=== PATIENT | female | born 1935 | race Caucasian/White ===

== ENCOUNTER → 2016-12-30 | Outpatient (CLI) | payer OTHER, MEDICARE ==
[~2016-12-30] MED LIST: ALBU18002; ALBU1AER9 INH; ATOR-22 PO; BUSP5TAB59 PO; CHOLDRO4 PO; CLOP1TAB5 PO; EFFSR150 PO; FEXO5TAB2 PO; FISHOIL PO; GABA-112 PO; GABA1CAP5 PO; HYDR25CA PO; LOSA1TAB PO; MISCCAP80 PO; MOME200A INH; MONT1TAB3 PO; MONT1TAB5 PO; OXYC1TAB3 PO; PRED20TA PO; PRLSR20 PO; SUMA25TA12 PO; SYN175 PO; SYN50 PO; VENL75CA PO; VERA180T PO; VITAMIN D3 PO; ZNTT/150 PO; [UNRECOGNIZED DRUG - OTHER] EXT
--- NOTE | 2016-12-30 15:21 | DIAGNOSTIC IMAGING REPORT ---
THORACIC SPINE 3 VIEWS CLINICAL HISTORY: Thoracic back pain. FINDINGS: AP, lateral, and swimmer's views of the thoracic spine are correlated with lateral chest radiograph dated 01/16/2016. The skeletal structures are osteopenic. There is no radiographic evidence of fracture or malalignment. Vertebral body height and alignment are maintained throughout the thoracic spine. Mild hyperkyphosis is observed. Anterior osteophytes are seen throughout. Mild multilevel degenerative disc space narrowing is noted and there is degenerative endplate sclerosis at several levels. The transverse processes and pedicles are grossly intact on frontal view. The imaged lung parenchyma appears clear. IMPRESSION: Osteopenia and spondylotic change as above. No acute bony abnormality is identified involving the thoracic spine. Electronically signed by: Shreyas Cai M.D. 12/30/2016 3:20 PM Dictated Date/Time: 12/30/2016 3:18 PM
--- NOTE | 2016-12-30 15:22 | DIAGNOSTIC IMAGING REPORT ---
CERVICAL SPINE 5 VIEWS HISTORY: Neck pain. COMPARISON: None. FINDINGS: The cervical spine is visualized from C1 through the superior endplate of T1. There is no fracture. There is 1 mm of anterolisthesis of C4 and C5. Mild disc space narrowing at C4-C5 and moderate to space narrowing at C5-C6 and C6-C7 with small endplate osteophytes. Mild to moderate facet osteoarthritis throughout the cervical spine with multilevel moderate right and mild left neural foraminal narrowing. Straightening of the cervical spine. Prevertebral soft tissues and the atlantodens interval are intact. IMPRESSION: 1. No fractures within the cervical spine. 2. [id number] degenerative disc disease and facet osteoarthritis as described above. 3. There is 1 mm of anterolisthesis of C4 on C5. This is likely due to the long-standing degenerative change. Electronically signed by: Garrett Cantu M.D. 12/30/2016 3:21 PM Dictated Date/Time: 12/30/2016 3:19 PM
== END | disposition home or self-care (01) ==
LOC: C.RAD1850 14:50
PROVIDERS: ATTEND Internal Medicine
DX: M54.9 Dorsalgia, unspecified (principal); M79.2 Neuralgia and neuritis, unspecified; M53.82 Other specified dorsopathies, cervical region; M85.88 Other specified disorders of bone density and structure, other site

== ENCOUNTER → 2017-01-08 | Outpatient (CLI) | payer OTHER, MEDICARE ==
[~2017-01-08] MED LIST changes: -ALBU18002; -BUSP5TAB59 PO; -CHOLDRO4 PO; -FEXO5TAB2 PO; -GABA1CAP5 PO; -HYDR25CA PO; -MONT1TAB5 PO
[2017-01-08 09:37] LABS: BASO % 0.5 %; BASO ABS # 0.04 K/uL (0-0.2); COMPLETE YES; EOS % 4.2 %; IG% 0.3 %; LYMPH % 28.3 %; MEAN CELL VOLUME 93.4 fL (80-100); MEAN CORPUSCULAR HEMOGLOBIN 29.3 pg (25-34); MEAN CORPUSCULAR HGB CONC 31.4 g/dl (32-36); MEAN PLATELET VOLUME 9.8 fL (7.4-10.4); MONO % 9.4 %; NEUT % 57.3 %; PLATELET COUNT 275 K/uL (130-400); RED BLOOD COUNT 4.71 M/uL (4.2-5.4); WHITE BLOOD COUNT 7.41 K/uL (4.8-10.8)
[2017-01-08 10:07] LABS: ALT/SGPT 19 U/L (12-78); BLOOD UREA NITROGEN 19 mg/dl (7-18); BUN/CREATININE RATIO 15.6 (10-20); CALCIUM 9.1 mg/dl (8.5-10.1); CARBON DIOXIDE 28 mmol/L (21-32); CHLORIDE 110 mmol/L (98-107); CHOLESTEROL 163 mg/dl (0-200); GLUCOSE 99 mg/dl (70-99); POTASSIUM 4.2 mmol/L (3.5-5.1); SODIUM 144 mmol/L (136-145); TRIGLYCERIDES 123 mg/dl (0-150); VERY LOW DENSITY LIPOPROT CALC 25 mg/dl
[2017-01-08 10:18] LABS: ALB/GLOB RATIO 1.2 (0.9-2); ALKALINE PHOSPHATASE 101 U/L (45-117); AST/SGOT 16 U/L (15-37); CHOLESTEROL/HDL RATIO 2.4; HDL CHOLESTEROL 67 mg/dl; LDL CHOLESTEROL CALCULATED 71 mg/dl
[2017-01-08 10:26] LABS: ESTIMATED AVERAGE GLUCOSE 123 mg/dl; HA1C FLAG Normal (Normal)
--- NOTE | 2017-01-14 11:37 | CODING QUERY MEDICAL NECESSITY ---
SUPPORTING DIAGNOSIS NEEDED Dr. Kohli, A supporting diagnosis is required for the test/procedure performed on this patient in order for us to be reimbursed by the patient's insurance. Please provide a supporting diagnosis for the following test/procedure listed below next to the test name along with your signature. *If there is no additional diagnosis for this patient that would support the following test/procedure please document that below next to the test/procedure. Test(s)/Procedure(s) that require a supporting diagnosis: * ([id number]) B12 VITAMIN LEVEL DIAGNOSIS: DATE OF SERVICE: 01/08/17 Provider Signature: Date: Thank you Héctor Vigil [facility] Information Management Once completed, please kindly fax back to [phone] For questions please call [phone]
== END | disposition home or self-care (01) ==
LOC: C.LAB1850 08:46
PROVIDERS: ATTEND Internal Medicine
DX: Z00.00 Encounter for general adult medical examination without abnormal findings (principal); E03.9 Hypothyroidism, unspecified; I10 Essential (primary) hypertension; R73.01 Impaired fasting glucose; E78.00 Pure hypercholesterolemia, unspecified; G62.9 Polyneuropathy, unspecified; R20.0 Anesthesia of skin; R53.83 Other fatigue

== ENCOUNTER 2017-01-20 11:26 | Emergency (ER) | payer OTHER, MEDICARE ==
[~2017-01-20] VITALS: Ht 157.5 cm; Wt 71.0 kg
[~2017-01-20 11:26] MED LIST changes: -GABA-112 PO; -MOME200A INH; -OXYC1TAB3 PO; -PRED20TA PO; -PRLSR20 PO; -SUMA25TA12 PO; -SYN50 PO
[2017-01-20 11:37] VITALS: TEMP 36.6; Ht 157.5 cm; Wt 71.0 kg
[2017-01-20] MEDS ORDERED: TRAMADOL HCL 50 MG TAB PO STA (12:08)
[2017-01-20] MEDS ORDERED: SODIUM CHLORIDE 0.9% 500ML 500 ML IV STA (12:08)
[2017-01-20] MEDS ORDERED: MOME200A INH (12:11)
[2017-01-20] MEDS ORDERED: PRLSR20 PO (12:11)
[2017-01-20] MEDS ORDERED: SUMA25TA12 PO (12:11)
[2017-01-20 12:39] LABS: BASO % 0.3 %; BASO ABS # 0.04 K/uL (0-0.2); COMPLETE YES; EOS % 0.5 %; HEMATOCRIT 42.1 % (37-47); IG% 0.2 %; LYMPH % 7.3 %; LYMPH ABS # 0.85 K/uL (1.2-3.4); MEAN CELL VOLUME 92.3 fL (80-100); MEAN CORPUSCULAR HEMOGLOBIN 30.7 pg (25-34); MEAN CORPUSCULAR HGB CONC 33.3 g/dl (32-36); MEAN PLATELET VOLUME 9.6 fL (7.4-10.4); MONO % 4.3 %; NEUT % 87.4 %; PLATELET COUNT 244 K/uL (130-400); RED BLOOD COUNT 4.56 M/uL (4.2-5.4); WHITE BLOOD COUNT 11.66 K/uL (4.8-10.8)
[2017-01-20 12:57] LABS: BUN/CREATININE RATIO 21.5 (10-20); CALCIUM 9.3 mg/dl (8.5-10.1); CREATININE 1.1 mg/dl (0.60-1.20); POTASSIUM 4.3 mmol/L (3.5-5.1)
--- NOTE | 2017-01-20 13:07 | EMERGENCY ROOM VISIT NOTE ---
History Report prepared by Julio: Vasu Ko Under the Supervision of: Dr. Shreyas Viera M.D. First contact with patient: 12:01 Chief Complaint: BACK PAIN Stated Complaint: EXTREME BACK PAIN-UNABLE TO WALK History of Present Illness The patient is an 81 year old female who presents to the Emergency Room with complaints of constant right hip and lower back pain beginning this morning. The patient states that this morning when she woke up she was in severe pain. She reports that she could barely get out of bed and ambulate. The patient notes that she has never had this before, and she did not go to bed with it. She states that any sort of movement makes it worse. The patient reports that she was twisting and bending in her garden yesterday and does not know if she over did it. She notes that she also vacuumed yesterday. The patient states that her pain does not radiate into her legs. She reports that a couple weeks ago she had x-rays performed that showed she has a high disk problem in her spine. The patient notes that it has been causing arm pain. She denies fevers, vomiting, abdominal pain, urinary symptoms, change in bowel movements, and nausea. The patient states that she has a history of arthritis, and she takes gabapentin 3 times a day, and today she took an extra dose to help with the pain. She denies a history of sciatica. The patient reports that she is currently on Plavix. Source of History: patient Onset: this morning Position: pelvis (right), back (lower, right) Symptom Intensity: severe Timing: constant Associated Symptoms: No fevers, No nausea, No vomiting, No abdominal pain, No urinary symptoms Note: Associated symptoms: arm pain Denies: leg pain, change in bowel movements Review of Systems See HPI for pertinent positives & negatives. A total of 10 systems reviewed and were otherwise negative. Past Medical & Surgical Medical Problems: (1) Arthritis Family History Patient reports no known family medical history. Social History Smoking Status: Never Smoker Alcohol Use: none Marital Status: single Occupation Status: retired Current/Historical Medications Scheduled Atorvastatin (Lipitor), 20 MG PO HS Clopidogrel Bisulfate (Plavix), 75 MG PO QAM Levothyroxine Sodium (Synthroid), 1 TAB PO QAM Losartan Potassium (Cozaar), 25 MG PO QAM Montelukast Sodium (Singulair), 10 MG PO HS Omeprazole (Prilosec), 20 MG PO BID Prednisone (Prednisone), 2 TAB PO DAILY Probiotic Product (Probiotic), 1 CAP PO AC Ranitidine (Zantac), 150 MG PO QAM Venlafaxine Hcl (Effexor Extended Rel), 300 MG PO QAM Verapamil Hcl (Calan Sr Ext Rel), 180 MG PO QAM Scheduled PRN Albuterol Sulfate (Proair Hfa), 1-2 PUFFS INH QID PRN for Shortness of Breath Mometasone Furoate-Formoterol (Dulera 200/5 Mcg), 2 PUFFS INH BID PRN for PRN Oxycodone Ir (Roxicodone Ir), 1-2 TAB PO Q4H PRN for Pain Sumatriptan Succinate (Imitrex), 25 MG PO PRN PRN for Headache Allergies Coded Allergies: [place] (Verified Allergy, Unknown, UNSURE, 01/20/17) Aspirin (Verified Adverse Reaction, Mild, stomach upset, 01/20/17) Lactose (Verified Adverse Reaction, Unknown, GI SYMPTOMS, 01/20/17) Physical Exam Vital Signs Date Time Temp Pulse Resp B/P (MAP) Pulse Ox O2 Delivery O2 Flow Rate FiO2 01/20/17 14:56 77 18 141/85 98 01/20/17 13:26 84 18 146/79 98 Room Air 01/20/17 11:37 36.6 73 18 153/73 94 Room Air Physical Exam GENERAL: Patient is in no acute distress. HEENT: No acute trauma, normocephalic atraumatic, mucous membranes moist, no nasal congestion, no scleral icterus. NECK: No stridor, no adenopathy, no meningismus, trachea is midline. LUNGS: Clear to auscultation bilaterally, no wheeze, no rhonchi, breath sounds equal. HEART: 2/6 systolic murmur, regular rate and rhythm. ABDOMEN: Soft, nontender, bowel sounds positive, no hernias, no peritonitis. BACK: Tender over the lower lumbar musculature, more on right. No midline jeffrey step-off or focal pain. Pain worsens with movement. EXTREMITIES: No cyanosis or edema, full range of motion of all the joints without pain or difficulty, no signs for acute trauma. Tender to palpate the right lateral hip. NEUROLOGIC: Oriented x 3, no acute motor or sensory deficits, no focal weakness. SKIN: No rash, no jaundice, no diaphoresis. Medical Decision & Procedures ER Provider Diagnostic Interpretation: Radiology results as stated below per my review and radiologist interpretation: PELVIS 1 OR 2 VIEW ROUTINE CLINICAL HISTORY: right hip pain pain COMPARISON: None. DISCUSSION: The bones and joint spaces appear intact. There is no evidence of fracture, dislocation or bony disease. Mild calcific trochanteric bursitis right and to lesser extent left hip. Mild degenerative change symphysis pubis and sacroiliac joints. Nonobstructive bowel pattern. IMPRESSION: Mild degenerative change with a component of mild right and to a lesser extent left calcific trochanteric bursitis. The above report was generated using voice recognition software. It may contain grammatical, syntax or spelling errors. Electronically signed by: Ganga Mendes M.D. 01/20/2017 1:05 PM Dictated Date/Time: 01/20/2017 1:04 PM LUMBAR SPINE WITHOUT HISTORY: 81 years Female Back pain--mostly right sided COMPARISON: Chest CT 03/14/2013, lumbar spine CT 06/24/2006 TECHNIQUE: Multiple axial CT images of the lumbar spine were obtained without contrast. FINDINGS: No acute fracture or dislocation is identified. The transverse processes and posterior elements appear intact. No compression deformity is seen. Multilevel degenerative changes of the lumbar spine are again seen, most pronounced at the lower lumbar levels. There is unchanged 5 mm anterolisthesis of L4 on L5 secondary to severe facet arthropathy. There is a partially imaged lesion which is exophytic the interpolar left kidney with stranding stranding. An apparent cyst was seen within this distribution on study dated 03/14/2013. Similar-appearing lesion is seen projecting from the inferior pole left kidney, 1.4 cm. is atherosclerotic plaquing of the aorta. T12-L1: Mild facet arthropathy without central canal or foraminal narrowing. L1-L2: Mild facet arthropathy and endplate spurring results in mild left foraminal stenosis. Central canal and right foramen are patent. L2-L3: Moderate facet arthropathy, ligamentum flavum redundancy and circumferential annular disc bulge effaces the ventral thecal sac causing moderate right and mild left foraminal narrowing. L3-L4: Moderate intervertebral disc space narrowing and moderate facet arthropathy is present in conjunction with ligamentum flavum redundancy, posterior spondylitic spurring and circumferential annular disc bulge causing mild to moderate central canal, mild right and mild left foraminal stenosis. L4-L5: Severe intervertebral disc space narrowing and advanced facet arthropathy is present in conjunction with posterior spondylitic spurring and disc uncovering along with circumferential annular disc bulge causing moderate to severe central canal, moderate to severe bilateral foraminal narrowing. L5-S1: Veins intervertebral disc space narrowing and facet arthropathy is present in conjunction with broad-based posterior disc osteophyte complex formation which abuts the ventral thecal sac thousand and central canal narrowing. There is however resultant severe left and [id number] right foraminal narrowing. IMPRESSION: 1. No acute fracture or dislocation of the lumbar spine identified. No sacral insufficiency fracture or compression deformity. 2. Advanced intervertebral disc space narrowing and facet arthropathy again seen at the L4-L5 and L5-S1 levels resulting in varying degrees of central canal and foraminal narrowing as above. 3. Suggested renal cysts of the left kidney, partially imaged. These could be confirmed with dedicated renal ultrasound. The above report was generated using voice recognition software. It may contain grammatical, syntax or spelling errors. Electronically signed by: Jacobo Esparza M.D. 01/20/2017 1:13 PM Dictated Date/Time: 01/20/2017 1:02 PM RIGHT HIP UNILATERAL 2 VIEWS CLINICAL HISTORY: right hip pain Right pain COMPARISON: None. DISCUSSION: Mild/moderate degenerative change right hip. No evidence for acute bony pathology. No evidence for acetabular protrusion. Mild trochanteric bursitis. There is no evidence for soft tissue swelling. IMPRESSION: Mild right hip calcific trochanteric bursitis. Moderate degenerative change. No acute process. The above report was generated using voice recognition software. It may contain grammatical, syntax or spelling errors. Electronically signed by: Ganga Mendes M.D. 01/20/2017 1:06 PM Dictated Date/Time: 01/20/2017 1:05 PM Laboratory Results 01/20/17 12:22 Red Blood Count 4.56, Mean Corpuscular Volume 92.3, Mean Corpuscular Hemoglobin 30.7, Mean Corpuscular Hemoglobin Concent 33.3, Mean Platelet Volume 9.6, Neutrophils (%) (Auto) 87.4, Lymphocytes (%) (Auto) 7.3, Monocytes (%) (Auto) 4.3, Eosinophils (%) (Auto) 0.5, Basophils (%) (Auto) 0.3, Neutrophils # (Auto) 10.19, Lymphocytes # (Auto) 0.85, Monocytes # (Auto) 0.50, Eosinophils # (Auto) 0.06, Basophils # (Auto) 0.04 01/20/17 12:22 Test 01/20/17 12:22 01/20/17 13:15 White Blood Count 11.66 K/uL (4.8-10.8) Red Blood Count 4.56 M/uL (4.2-5.4) Hemoglobin 14.0 g/dL (12.0-16.0) Hematocrit 42.1 % (37-47) Mean Corpuscular Volume 92.3 fL (80-100) Mean Corpuscular Hemoglobin 30.7 pg (25-34) Mean Corpuscular Hemoglobin Concent 33.3 g/dl (32-36) Platelet Count 244 K/uL (130-400) Mean Platelet Volume 9.6 fL (7.4-10.4) Neutrophils (%) (Auto) 87.4 % Lymphocytes (%) (Auto) 7.3 % Monocytes (%) (Auto) 4.3 % Eosinophils (%) (Auto) 0.5 % Basophils (%) (Auto) 0.3 % Neutrophils # (Auto) 10.19 K/uL (1.4-6.5) Lymphocytes # (Auto) 0.85 K/uL (1.2-3.4) Monocytes # (Auto) 0.50 K/uL (0.11-0.59) Eosinophils # (Auto) 0.06 K/uL (0-0.5) Basophils # (Auto) 0.04 K/uL (0-0.2) RDW Standard Deviation 45.1 fL (36.4-46.3) RDW Coefficient of Variation 13.4 % (11.5-14.5) Immature Granulocyte % (Auto) 0.2 % Immature Granulocyte # (Auto) 0.02 K/uL (0.00-0.02) Anion Gap 6.0 mmol/L (3-11) Est Creatinine Clear Calc Drug Dose 37.7 ml/min Estimated GFR () 54.9 Estimated GFR (Non- 47.4 BUN/Creatinine Ratio 21.5 (10-20) Calcium Level 9.3 mg/dl (8.5-10.1) Urine Color YELLOW Urine Appearance CLEAR (CLEAR) Urine pH 5.5 (4.5-7.5) Urine Specific [place] 1.024 (1.000-1.030) Urine Protein NEG (NEG) Urine Glucose (UA) NEG (NEG) Urine Ketones NEG (NEG) Urine Occult Blood NEG (NEG) Urine Nitrite NEG (NEG) Urine Bilirubin NEG (NEG) Urine Urobilinogen NEG (NEG) Urine Leukocyte Esterase NEG (NEG) Laboratory results reviewed by me. Medications Administered Medications (Trade) Dose Ordered Sig/[place] Route Start Time Stop Time Status Last Admin Dose Admin Tramadol HCl (Ultram Tab) 100 mg NOW STAT PO 01/20/17 12:08 01/20/17 12:13 DC 01/20/17 12:17 100 MG Sodium Chloride 500 ml @ 999 mls/hr Q31M STAT IV 01/20/17 12:08 01/20/17 12:38 DC 01/20/17 12:18 999 MLS/HR Morphine Sulfate (MoRPHine SULFATE INJ) 4 mg Q15M PRN IV 01/20/17 13:15 01/20/17 15:17 DC 01/20/17 13:24 4 MG Prednisone (PredniSONE TAB) 60 mg NOW STAT PO 01/20/17 14:07 01/20/17 14:08 DC 01/20/17 14:49 60 MG ED Course 1203: The patient was evaluated in room C03. A complete history and physical exam was performed. 1208: Ordered Sodium Chloride 500 ml @ 999 mls/hr IV, Tramadol HCl 100 mg PO 1315: Ordered Morphine Sulfate 4 mg IV 1359: Reevaluated the patient. Discussed results and discharge instructions: she verbalized understanding and agreement. The patient is ready for discharge once she receives her dose of steroids. 1407: Ordered Prednisone 60 mg PO Medical Decision Differential diagnosis includes: nerve impingement, disk disease, metastasis, renal colic, UTI, muscle spasm Medication Reconciliation: I attest that I have personally reviewed the patient' s current medication list. Blood pressure screening: Patient was found to have a slightly elevated blood pressure due to circumstances. I do not believe that the patient requires hypertension monitoring. There is a very mild leukocytosis, this could be consistent with infection or just the pain she is experiencing. No concerning anemia. No significant electrolyte abnormality or kidney failure. Urinalysis does not show infection or hematuria. Pelvis and right hip films do not show pelvic fracture. There was some calcific tendinitis noted. Lumbar spine CT does not show any evidence for fracture. Some arthritis and canal narrowing was noted. The patient received oral tramadol, she was given IV morphine and oral prednisone. She received IV saline. She does feel improved. The patient presents with lower right back pain which worsens with movement. She also has some right lateral hip discomfort. She is tender over the right lateral hip on examination. She has calcific tendinitis by film. The patient appears to have musculoskeletal discomfort. I am going to place her on a burst of prednisone, oxycodone for severe pain, ice and rest were encouraged. She likely aggravated things with all the activity performed yesterday. She will follow with her doctor and return here for fever, worsening pain or lack of improvement. [place] Drug Monitoring Program Search Results: patient reviewed within database, no issues identified Impression Primary Impression: Low back pain radiating to right leg Additional Impression: Calcific tendinitis Scribe Attestation The scribe's documentation has been prepared under my direction and personally reviewed by me in its entirety. I confirm that the note above accurately reflects all work, treatment, procedures, and medical decision making performed by me. Departure Information Dispostion Home / Self-Care Prescriptions Prednisone (Prednisone) 20 Mg Tab 2 TAB PO DAILY for 5 Days, #10 TAB Prov: Shreyas Viear M.D. 01/20/17 Oxycodone Ir (Roxicodone Ir) 5 Mg Tab 1-2 TAB PO Q4H Y for Pain, #12 TAB Prov: Shreyas Viera M.D. 01/20/17 Referrals Rupal Kholi M.D. (PCP) Forms HOME CARE DOCUMENTATION FORM, IMPORTANT VISIT INFORMATION Patient Instructions My [facility] Additional Instructions tylenol for pain ice to the sore areas for 30 minutes at a time, several times per day prednisone as directed---first dose tomorrow oxy ir 1-2 tab as needed every 4 hours for severe pain rest return for fever, vomiting or worsening symptoms see elke acosta for a recheck this week Problem Qualifiers
--- NOTE | 2017-01-20 13:14 | DIAGNOSTIC IMAGING REPORT ---
LUMBAR SPINE WITHOUT HISTORY: 81 years Female Back pain--mostly right sided COMPARISON: Chest CT 03/14/2013, lumbar spine CT 06/24/2006 TECHNIQUE: Multiple axial CT images of the lumbar spine were obtained without contrast. FINDINGS: No acute fracture or dislocation is identified. The transverse processes and posterior elements appear intact. No compression deformity is seen. Multilevel degenerative changes of the lumbar spine are again seen, most pronounced at the lower lumbar levels. There is unchanged 5 mm anterolisthesis of L4 on L5 secondary to severe facet arthropathy. There is a partially imaged lesion which is exophytic the interpolar left kidney with stranding stranding. An apparent cyst was seen within this distribution on study dated 03/14/2013. Similar-appearing lesion is seen projecting from the inferior pole left kidney, 1.4 cm. is atherosclerotic plaquing of the aorta. T12-L1: Mild facet arthropathy without central canal or foraminal narrowing. L1-L2: Mild facet arthropathy and endplate spurring results in mild left foraminal stenosis. Central canal and right foramen are patent. L2-L3: Moderate facet arthropathy, ligamentum flavum redundancy and circumferential annular disc bulge effaces the ventral thecal sac causing moderate right and mild left foraminal narrowing. L3-L4: Moderate intervertebral disc space narrowing and moderate facet arthropathy is present in conjunction with ligamentum flavum redundancy, posterior spondylitic spurring and circumferential annular disc bulge causing mild to moderate central canal, mild right and mild left foraminal stenosis. L4-L5: Severe intervertebral disc space narrowing and advanced facet arthropathy is present in conjunction with posterior spondylitic spurring and disc uncovering along with circumferential annular disc bulge causing moderate to severe central canal, moderate to severe bilateral foraminal narrowing. L5-S1: Veins intervertebral disc space narrowing and facet arthropathy is present in conjunction with broad-based posterior disc osteophyte complex formation which abuts the ventral thecal sac thousand and central canal narrowing. There is however resultant severe left and kbhg-[id number] right foraminal narrowing. IMPRESSION: 1. No acute fracture or dislocation of the lumbar spine identified. No sacral insufficiency fracture or compression deformity. 2. Advanced intervertebral disc space narrowing and facet arthropathy again seen at the L4-L5 and L5-S1 levels resulting in varying degrees of central canal and foraminal narrowing as above. 3. Suggested renal cysts of the left kidney, partially imaged. These could be confirmed with dedicated renal ultrasound. The above report was generated using voice recognition software. It may contain grammatical, syntax or spelling errors. Electronically signed by: Jacobo Esparza M.D. 01/20/2017 1:13 PM Dictated Date/Time: 01/20/2017 1:02 PM
[2017-01-20] MEDS ORDERED: MoRPHine SULFATE 4 MG/ML 1 ML CARP\\VIAL IV PRN (13:15)
[2017-01-20 13:32] LABS: URINE APPEARANCE CLEAR (CLEAR); URINE BILIRUBIN NEG (NEG); URINE COLOR YELLOW; URINE NITRITE NEG (NEG); URINE PH 5.5 (4.5-7.5); URINE SPECIFIC GRAVITY 1.024 (1.000-1.030); UROBILINOGEN NEG (NEG); ZZUR CULT IF INDIC CLEAN CATCH NO
[2017-01-20 13:37] LABS: MANUAL MICROSCOPIC REQUIRED? NO; REVIEW REQ? NO
[2017-01-20] MEDS ORDERED: PRED20TA PO (14:10)
[2017-01-20] MEDS ORDERED: OXYC1TAB3 PO (14:10)
[2017-01-20 14:56] VITALS: BP 141/85; PULSE 77; O2SAT 98
[2017-02-11] MEDS ORDERED: SYN50 PO (09:43)
[2017-03-27] MEDS ORDERED: GABA-112 PO (10:13)
== END 2017-01-20 14:57 | disposition home or self-care (01) ==
LOC: C.EDB 11:27 → C.EDC 14:57
DX: M65.20 Calcific tendinitis, unspecified site (principal); M19.90 Unspecified osteoarthritis, unspecified site; Z79.01 Long term (current) use of anticoagulants; Z79.899 Other long term (current) drug therapy

== ENCOUNTER 2017-03-05 14:30 | Emergency (ER) | payer OTHER, MEDICARE ==
[~2017-03-05] VITALS: Ht 157.5 cm; Wt 72.1 kg
[~2017-03-05 14:30] MED LIST changes: -FISHOIL PO; +MOME200A INH; -MONT1TAB3 PO; +PRLSR20 PO; +SUMA25TA12 PO; -SYN175 PO; +SYN50 PO; -VENL75CA PO; -VITAMIN D3 PO; -[UNRECOGNIZED DRUG - OTHER] EXT
[2017-03-05 14:35] VITALS: TEMP 36.7; Ht 157.5 cm; Wt 72.1 kg
[2017-03-05] MEDS ORDERED: DEXAMETHASONE SOD INJ 10 MG/ML VIAL PO ONE (15:30)
--- NOTE | 2017-03-05 15:43 | EMERGENCY ROOM VISIT NOTE ---
History Report prepared by Julio: Carlos Garcia Under the Supervision of: Dr. Sivakumar Baer M.D. First contact with patient: 14:49 Chief Complaint: BACK PAIN Stated Complaint: BACK HIP SHOULDER PAIN History of Present Illness The patient is a 81 year old female who presents to the Emergency Room with complaints of constant back pain for months which worsened last night. She currently rates her discomfort as a 2-3/10 in severity. The patient additionally states that she is having shoulder pain, hip pain, headache, and tingling in her left arm. She is denying any urinary symptoms and problems with her bowels. She states that she is currently going through pain management at [facility], and her last visit was on February 10. She states that her next appointment is on March 16 for a follow up, and they states that it could be arthritis, bursitis, and tendonitis. She is currently taking gabapentin for the pain. The patient states that she does not have diabetes, and she takes clopidogrel for her past history of strokes. She additionally has a history of herniated discs and arthritis. Source of History: patient Onset: a couple of months ago Position: back Symptom Intensity: 2-3/10 Timing: worsening Associated Symptoms: + headache, No urinary symptoms Note: Associated symptoms: shoulder pain, hip pain, and tingling in her arm. Review of Systems See HPI for pertinent positives and negatives. A total of ten systems were reviewed and were otherwise negative. Past Medical & Surgical Medical Problems: (1) Anxiety (2) Arthritis (3) Asthma (4) Depression (5) Gastroesophageal reflux disease (6) History of CVA (cerebrovascular accident) without residual deficits (7) Hyperlipidemia (8) Hypertension (9) Hypothyroidism Surgical Problems: (1) History of appendectomy (2) History of foot surgery (3) History of hysterectomy (4) History of tonsillectomy and adenoidectomy Family History Patient reports no known family medical history. Social History Smoking Status: Never Smoker Alcohol Use: none Marital Status: single Occupation Status: retired Current/Historical Medications Scheduled Atorvastatin (Lipitor), 20 MG PO HS Clopidogrel Bisulfate (Plavix), 75 MG PO QAM Levothyroxine Sodium (Synthroid), 75 MCG PO DAILY Losartan Potassium (Cozaar), 25 MG PO QAM Prednisone (Prednisone), 0 PO DAILY Probiotic Product (Probiotic), 1 CAP PO AC Ranitidine (Zantac), 150 MG PO QAM Venlafaxine Hcl (Effexor Extended Rel), 150 MG PO BID Verapamil Hcl (Calan Sr Ext Rel), 180 MG PO QAM Scheduled PRN Albuterol Sulfate (Proair Hfa), 1-2 PUFFS INH QID PRN for Shortness of Breath Mometasone Furoate-Formoterol (Dulera 200/5 Mcg), 2 PUFFS INH BID PRN for PRN Sumatriptan Succinate (Imitrex), 25 MG PO PRN PRN for Headache Allergies Coded Allergies: [place] (Verified Allergy, Unknown, UNSURE, 01/20/17) Aspirin (Verified Adverse Reaction, Mild, stomach upset, 01/20/17) Lactose (Verified Adverse Reaction, Unknown, GI SYMPTOMS, 01/20/17) Physical Exam Vital Signs Date Time Temp Pulse Resp B/P (MAP) Pulse Ox O2 Delivery O2 Flow Rate FiO2 03/05/17 15:59 101 18 143/94 96 Room Air 03/05/17 14:35 36.7 98 18 121/81 94 Room Air Physical Exam GENERAL: Awake, alert, well-appearing, in no distress HENT: Normocephalic, atraumatic. Oropharynx unremarkable. EYES: Normal conjunctiva. Sclera non-icteric. NECK: Supple. No nuchal rigidity. FROM. No JVD. RESPIRATORY: Clear to auscultation. CARDIAC: Regular rate, normal rhythm. Extremities warm and well perfused. Pulses equal. ABDOMEN: Soft, non-distended. No tenderness to palpation. No rebound or guarding. No masses. RECTAL: Deferred. MUSCULOSKELETAL: Chest examination reveals no tenderness. The back is symmetrical on inspection without obvious abnormality. There is no CVA tenderness to palpation. No joint edema. LOWER EXTREMITIES: Full range of motion. Calves are equal size bilaterally and non-tender. No edema. No discoloration. NEURO: Good strength. No loss of sensation. Normal sensorium. No sensory or motor deficits noted. SKIN: No rash or jaundice noted. Medical Decision & Procedures Medications Administered Medications (Trade) Dose Ordered Sig/[place] Route Start Time Stop Time Status Last Admin Dose Admin Dexamethasone Sodium Phosphate (Decadron Inj) 10 mg NOW ONCE PO 03/05/17 15:30 03/05/17 15:31 DC 03/05/17 15:57 10 MG ED Course 1506: The patient was evaluated in room C12. A complete history and physical exam was performed. 1530: Decadron Inj 10mg PO 1630: I reevaluated the patient. Discussed results and discharge instructions: She verbalized understanding and agreement. The patient is ready for discharge. Medical Decision I reviewed the patient's past medical history, medications, and the nursing notes as described above. The patient's presentation and history were concerning for chronic radiculopathy , fracture, musculoskeletal strain, dehydration, and electrolyte abnormality. The patient is an 81 yo woman with a pmhx chronic radicular sx in the setting of spinal stenosis and degenerative disk disease who presents to the ED with progressively worsening radicular sx that wax and wan per HPI. On arrival the patient is in NAD. AFVSS. Denies any sx of urinary retention or bowel incontinence. On exam has motor and sensory intact and FROM x 4 Ext. Reports pain is a 2/10 today althogh last night it was 10/10. Patient is already being followed for her sx with pain management however felt should could not wait for her appointment in March. I explained that narcotics are not recommended in the elderly and moreover not recommended for chronic pain. Patient agreeable to try steroid taper. Otherwise, I d/w patient unlikely need for imaging considering known disease and lack of sx concerning for cord compression, however, she was given option for MRI during her visit but she preferred to f/u with her doctor and the pain management clinic. Findings and plan for follow-up reviewed with patient. Patient agreeable and d/c'd per discharge instructions. Medication Reconcilliation Current Medication List: was personally reviewed by me Blood Pressure Screening Patient's blood pressure: Elevated blood pressure Blood pressure disposition: Elevated BP felt to be situational Impression Primary Impression: Radicular pain Scribe Attestation The scribe's documentation has been prepared under my direction and personally reviewed by me in its entirety. I confirm that the note above accurately reflects all work, treatment, procedures, and medical decision making performed by me. Departure Information Dispostion Home / Self-Care Prescriptions Prednisone (Prednisone) 20 Mg Tab 0 PO DAILY, #14 TAB 3 TABS DAILY FOR 2 DAYS, THEN 2 TABS DAILY FOR 2 DAYS, THEN 1 TAB DAILY FOR 2 DAYS, THEN 1/2 TAB DAILY FOR 2 DAYS. Prov: Sivakumar Baer M.D. 03/05/17 Referrals Rupal Kohli M.D. (PCP) Forms HOME CARE DOCUMENTATION FORM, IMPORTANT VISIT INFORMATION Patient Instructions ED Cervical Radiculopathy, Lumbar Radiculopathy, My [facility] Additional Instructions Please follow up with your primary care physician in the next 1-3 days for reevaluation. Your symptoms are likely related to your chronic radiculopathy. Otherwise, your exam did not show signs of an emergent condition at this time. Take prednisone as directed. Return to the emergency department for worsening symptoms as described in the accompanying instructions.
[2017-03-05 15:59] VITALS: BP 143/94; PULSE 101; O2SAT 96
[2017-03-05] MEDS ORDERED: PRED20TA PO (16:29)
[2017-03-27] MEDS ORDERED: GABA-112 PO (10:13)
== END 2017-03-05 16:15 | disposition home or self-care (01) ==
LOC: C.EDB 14:32 → C.EDC 16:15
DX: M54.10 Radiculopathy, site unspecified (principal); R51 Headache; E78.5 Hyperlipidemia, unspecified; E03.9 Hypothyroidism, unspecified; I10 Essential (primary) hypertension; M19.90 Unspecified osteoarthritis, unspecified site; F41.9 Anxiety disorder, unspecified; F32.9 Major depressive disorder, single episode, unspecified; K21.9 Gastro-esophageal reflux disease without esophagitis; J45.909 Unspecified asthma, uncomplicated; Z79.02 Long term (current) use of antithrombotics/antiplatelets; Z79.899 Other long term (current) drug therapy

== ENCOUNTER → 2017-03-23 | Outpatient (CLI) | payer OTHER, MEDICARE ==
[~2017-03-23] MED LIST changes: +GABA-112 PO; -PRLSR20 PO
--- NOTE | 2017-03-23 10:31 | DIAGNOSTIC IMAGING REPORT ---
CERVICAL WITHOUT CONTRAST HISTORY: Pain. Radiculopathy. CERVICAL RADICULOPATHY TECHNIQUE: Multiplanar multisequence MRI of the cervical spine was performed without the use of contrast. COMPARISON STUDY: None. FINDINGS: Normal signal characteristics of the vertebral bodies. Moderate to rather significant degenerative disc changes throughout. This is most prominent from C5 through C7. Minimal grade 1 degenerative anterolisthesis C4 on C5 estimated at 3 mm. Signal characteristics of the cervical cord remain unremarkable. C2-C3: No significant central canal or neural foraminal narrowing. C3-C4: Left lateral disc herniation creating significant narrowing left neuroforamina. No significant impact upon the cervical cord. C4-C5: Broad-based bulging disc. Moderate osteophytic narrowing of the neuroforamina bilaterally. C5-C6: Moderate right central disc herniation. Minimal impact anterior cervical cord. Significant narrowing of the neuroforamina bilaterally C6-C7: Moderate broad-based disc herniation. Considerable narrowing of the neuroforamina bilaterally. No significant impact with cervical cord. C7-T1: No significant central canal or neural foraminal narrowing. IMPRESSION: 1. Moderate degenerative disc change most prominent from C5 through C7. 2. Left lateral disc herniation creating significant narrowing left neuroforamina C3-C4. 3. Broad-based bulging disc C4-C5 with moderate narrowing of the neuroforamina bilaterally. Findings are accentuated by mild grade 1 anterolisthesis C4 on C5 . 4. Moderate right central disc herniation C5-C6. Significant narrowing of the neuroforamina bilaterally. 5. Broad-based disc herniation C6-C7 with significant narrowing of the neuroforamina bilaterally The above report was generated using voice recognition software. It may contain grammatical, syntax or spelling errors. Electronically signed by: Ganga Mendes M.D. 03/23/2017 10:30 AM Dictated Date/Time: 03/23/2017 10:23 AM
== END | disposition home or self-care (01) ==
LOC: C.MRIBC 09:22
PROVIDERS: ATTEND Physician Assistant Medical
DX: M50.11 Cervical disc disorder with radiculopathy, high cervical region (principal); M99.71 Connective tissue and disc stenosis of intervertebral foramina of cervical region

== ENCOUNTER → 2017-09-25 | Outpatient (CLI) | payer OTHER, MEDICARE ==
[~2017-09-25] MED LIST changes: +ALBU18002; +BUSP5TAB59 PO; +CHOLDRO4 PO; +FEXO5TAB2 PO; -GABA-112 PO; +HYDR25CA PO; +MONT1TAB5 PO; +RANI150T85 PO; -ZNTT/150 PO
[2017-09-25 13:14] LABS: ALBUMIN 3.6 gm/dl (3.4-5.0); ALT/SGPT 22 U/L (12-78); AST/SGOT 17 U/L (15-37); BLOOD UREA NITROGEN 17 mg/dl (7-18); CALCIUM 8.8 mg/dl (8.5-10.1); CARBON DIOXIDE 25 mmol/L (21-32); CREATININE 1.14 mg/dl (0.60-1.20); GLUCOSE 102 mg/dl (70-99); SODIUM 140 mmol/L (136-145); TOTAL PROTEIN 6.6 gm/dl (6.4-8.2)
[2017-09-25 13:25] LABS: ALKALINE PHOSPHATASE 106 U/L (45-117); CHOLESTEROL 135 mg/dl (0-200); LDL CHOLESTEROL CALCULATED 34 mg/dl
== END | disposition home or self-care (01) ==
LOC: C.LABBFT 09:24
PROVIDERS: ATTEND Internal Medicine
DX: Z00.00 Encounter for general adult medical examination without abnormal findings (principal); E03.9 Hypothyroidism, unspecified; I10 Essential (primary) hypertension; R73.01 Impaired fasting glucose; E78.00 Pure hypercholesterolemia, unspecified

== ENCOUNTER 2018-11-03 11:11 | Observation (INO) ==
[2018-11-03] MEDS ORDERED: ASPIRIN CHEW 324 MG PO STA (11:50)
[2018-11-03] MEDS ORDERED: SODIUM CHLORIDE 0.9% 500 ML IV SCH (12:00)
[2018-11-03] MEDS ORDERED: ALUMINUM/MAGNESIUM SUSP 30 ML UDC ONE (12:10)
[2018-11-03] MEDS ORDERED: ALUMINUM/MAGNESIUM SUSP 30 ML UDC PO STA ×2 (12:13→12:27)
--- NOTE | 2018-11-03 12:33 | XRay Report ---
XR chest 1V portable CLINICAL HISTORY: Chest Pain COMPARISON STUDY: Chest radiograph September 24, 2018. FINDINGS: Left breast/chest axillary surgical clips are noted. There is no pneumothorax or pleural ef fusion. No consolidation is present to suggest pneumonia. Minimal left basilar opacity suggests atele ctasis or scarring. Cardiomediastinal silhouette is unremarkable. IMPRESSION: No acute cardiopulmonary findings. Electronically signed by: Yusuf Kohli M.D. 11/03/2018 12:32 PM
[2018-11-03 12:48] LABS: Basophils # (auto) 0.01 K/uL (0-0.2); Basophils % (auto) 0.1 %; Hemoglobin 13.6 g/dL (12.0-16.0); Immature Granulocytes # (auto) 0.02 K/uL (0.00-0.02); Immature Granulocytes % (auto) 0.2 %; Lymphocytes # (auto) 1.25 K/uL (1.2-3.4); Lymphocytes % (auto) 10.2 %; Mean Corpuscular Volume 89.7 fL (80-100); Mean Platelet Volume 9.5 fL (7.4-10.4); Monocytes # (auto) 0.72 K/uL (0.11-0.59); Monocytes % (auto) 5.8 %; Neutrophils # (auto) 10.31 K/uL (1.4-6.5); Neutrophils % (auto) 83.7 %; Platelet Count 259 K/uL (130-400); RDW Coefficient of Variation 13.6 % (11.5-14.5); RDW Standard Deviation 44.7 fL (36.4-46.3); Red Blood Count 4.46 M/uL (4.2-5.4); White Blood Count 12.31 K/uL (4.8-10.8)
[2018-11-03 13:06] LABS: Alanine Aminotransferase 22 U/L (12-78); Albumin Level 3.6 gm/dl (3.4-5.0); Aspartate Aminotransferase 15 U/L (15-37); BUN Creatinine Ratio 18.7 (10-20); Blood Urea Nitrogen 21 mg/dl (7-18); Calcium 8.8 mg/dl (8.5-10.1); Carbon Dioxide 25 mmol/L (21-32); Chloride 108 mmol/L (98-107); Creatinine Clr Calc Pharmacy 35.2 ml/min; Est GFR (Non-African American) 45.7; Glucose 102 mg/dl (70-99); Magnesium 2.7 mg/dl (1.8-2.4); Potassium 3.8 mmol/L (3.5-5.1); Sodium 139 mmol/L (136-145)
[2018-11-03 13:11] LABS: Partial Thromboplastin Ratio 0.9; Partial Thromboplastin Time 24.9 Seconds (21.0-31.0); Prothrombin Time 10.6 Seconds (9.0-12.0)
[2018-11-03 13:17] LABS: Albumin Globulin Ratio 1.3 (0.9-2); Alkaline Phosphatase 90 U/L (45-117); Bilirubin,Total 0.3 mg/dl (0.2-1); Globulin 2.9 gm/dl (2.5-4.0); Total Protein 6.5 gm/dl (6.4-8.2); Troponin I < 0.015 ng/ml (0-0.045)
[2018-11-03 13:30] LABS: T4 Free Thyroxine 1.41 ng/dl (0.8-1.6)
--- NOTE | 2018-11-03 14:58 | Emergency Department Note ---
Entered by Laura Jimenez acting as a scribe for Irvin Molina DO History of Present Illness General Chief complaint: Referred by Doctor Stated complaint: FAMILY DOCTOR WANTS TO R/O CARDIAC PROBLEMS Source: patient and family () History of Present Illness Provider complaint: fatigue Onset (ago): week(s) (for the last week) Location: left and right Quality: + other (fatigue) Associated symptoms: + denies other symptoms (denies abdominal pain), + chest pain, + diaphoresis (cold sweats), + nausea/vomiting (nausea) and + other (numbness down bilateral arms); no weakness The patient is an 83 year old female who presents to the Emergency Department with complaints of fatigue for the last week. The patient states that she was having numbness down her bilateral arms. She also reports having cold sweats and nausea. The patient denies having weakness in her arms or legs and states that she has never had anything like this before. She reports getting intermittent chest discomfort but states that she does not have it when she walks. The patient denies having abdominal pain. The patient states that she saw her doctor today and was referred here. Per , Dr. Kohli referred the patient here for a stress test. She states that she does not take any medication for hypertension or diabetes. Home Medications Home Medications Medication Instructions Recorded Confirmed Type Melany-D 24 Hour 1 tab PO QAM 09/21/18 11/03/18 History Cataplex D 1 dose PO DAILY 09/21/18 11/03/18 History Probiotic 3,000 mmu cells PO DAILY 09/21/18 11/03/18 History albuterol sulfate 1 inh INHALATION QID PRN 09/21/18 11/03/18 History clopidogrel [Plavix] 75 mg PO QAM 09/21/18 11/03/18 History ketoconazole 1 applic TOPICAL UD 09/21/18 11/03/18 History levothyroxine 75 mcg PO UD 09/21/18 11/03/18 History losartan 25 mg PO QAM 09/21/18 11/03/18 History ranitidine HCl 150 mg PO BID 09/21/18 11/03/18 History venlafaxine 150 mg PO BID 09/21/18 11/03/18 History verapamil 180 mg PO QAM 09/21/18 11/03/18 History Allergies Allergy/AdvReac Type Severity Reaction Status Date / Time walnut Allergy Unknown + WITH Verified 11/03/18 12:08 ALLERGY TEST lactose AdvReac Intermediate GI SYMPTOMS Verified 11/03/18 12:08 aspirin AdvReac Mild stomach Verified 11/03/18 12:08 upset DUST Allergy Intermediate SINUS Uncoded 11/03/18 12:08 PROBLEM Past Med/Surg History Social History Preferred Language: Argentine Communication Ability: Effective Beliefs That Will Affect Care: None Current Living Situation: Family Other Information That Helps Us Care for You: Yes Feels Safe at Home: Yes Safety Concerns: Feels Safe At This Time Smoking Status: Never smoker Second Hand Exposure: No Hx Alcohol Use: Yes Alcohol type: beer Hx Substance Use: No Review of Systems See HPI for pertinent positives & negatives. and A total of 10 systems reviewed and were otherwise negative Physical Exam Vital Signs Vital Signs - 24 hr 11/03/18 11:17 11/03/18 12:13 11/03/18 12:26 Temperature 36.7 C Temperature Source Oral Sepsis Recent Fever Within 48 Hours No Sepsis New/Unexplained Change in Mental Status No Sepsis Action Taken by Nursing No Action Required Pulse Rate 83 74 72 Pulse Rate [Finger] Pulse Rate from SpO2 Sensor 71 Pulse Rhythm [Finger] Respiratory Rate 81 H 17 18 Respiratory Effort / Characteristics Respiratory Depth Respiratory Pattern Blood Pressure 124/79 151/76 H Blood Pressure [Right Arm] Blood Pressure Mean 94 101 Blood Pressure Mean [Right Arm] Blood Pressure Position [Right Arm] Pulse Oximetry 99 95 Oxygen Delivery Method Room Air 11/03/18 12:28 11/03/18 12:31 11/03/18 13:00 Temperature Temperature Source Sepsis Recent Fever Within 48 Hours Sepsis New/Unexplained Change in Mental Status Sepsis Action Taken by Nursing Pulse Rate 74 73 Pulse Rate [Finger] 77 Pulse Rate from SpO2 Sensor 75 74 Pulse Rhythm [Finger] Respiratory Rate 22 22 18 Respiratory Effort / Characteristics Respiratory Depth Respiratory Pattern Blood Pressure 152/99 H Blood Pressure [Right Arm] 151/76 H Blood Pressure Mean 116 Blood Pressure Mean [Right Arm] 101 Blood Pressure Position [Right Arm] Pulse Oximetry 100 100 100 Oxygen Delivery Method Room Air 11/03/18 13:01 11/03/18 13:31 11/03/18 14:00 Temperature Temperature Source Sepsis Recent Fever Within 48 Hours Sepsis New/Unexplained Change in Mental Status Sepsis Action Taken by Nursing Pulse Rate 74 71 76 Pulse Rate [Finger] Pulse Rate from SpO2 Sensor 71 74 Pulse Rhythm [Finger] Respiratory Rate 14 21 20 Respiratory Effort / Characteristics Respiratory Depth Respiratory Pattern Blood Pressure 155/83 H 137/105 H Blood Pressure [Right Arm] Blood Pressure Mean 107 115 Blood Pressure Mean [Right Arm] Blood Pressure Position [Right Arm] Pulse Oximetry 99 99 Oxygen Delivery Method 11/03/18 14:01 11/03/18 14:02 11/03/18 14:10 Temperature Temperature Source Sepsis Recent Fever Within 48 Hours Sepsis New/Unexplained Change in Mental Status Sepsis Action Taken by Nursing Pulse Rate 79 79 89 Pulse Rate [Finger] Pulse Rate from SpO2 Sensor 80 77 Pulse Rhythm [Finger] Respiratory Rate 18 21 17 Respiratory Effort / Characteristics Respiratory Depth Respiratory Pattern Blood Pressure 157/77 H 171/91 H Blood Pressure [Right Arm] Blood Pressure Mean 103 117 Blood Pressure Mean [Right Arm] Blood Pressure Position [Right Arm] Pulse Oximetry 99 99 Oxygen Delivery Method 11/03/18 14:31 11/03/18 15:01 11/03/18 15:07 Temperature Temperature Source Sepsis Recent Fever Within 48 Hours Sepsis New/Unexplained Change in Mental Status Sepsis Action Taken by Nursing Pulse Rate 80 80 Pulse Rate [Finger] Pulse Rate from SpO2 Sensor Pulse Rhythm [Finger] Respiratory Rate 19 18 Respiratory Effort / Characteristics Respiratory Depth Respiratory Pattern Blood Pressure 158/88 H 166/83 H Blood Pressure [Right Arm] Blood Pressure Mean 111 110 Blood Pressure Mean [Right Arm] Blood Pressure Position [Right Arm] Pulse Oximetry Oxygen Delivery Method 11/03/18 15:31 11/03/18 16:00 11/03/18 16:01 Temperature Temperature Source Sepsis Recent Fever Within 48 Hours Sepsis New/Unexplained Change in Mental Status Sepsis Action Taken by Nursing Pulse Rate 81 83 85 Pulse Rate [Finger] Pulse Rate from SpO2 Sensor 80 84 86 Pulse Rhythm [Finger] Respiratory Rate 24 25 H 16 Respiratory Effort / Characteristics Respiratory Depth Respiratory Pattern Blood Pressure 161/84 H 110/85 Blood Pressure [Right Arm] Blood Pressure Mean 109 93 Blood Pressure Mean [Right Arm] Blood Pressure Position [Right Arm] Pulse Oximetry 99 99 97 Oxygen Delivery Method 11/03/18 16:31 11/03/18 18:39 11/03/18 20:41 Temperature 37 C 36.8 C Temperature Source Oral Oral Sepsis Recent Fever Within 48 Hours Sepsis New/Unexplained Change in Mental Status Sepsis Action Taken by Nursing Pulse Rate 84 Pulse Rate [Finger] 80 83 Pulse Rate from SpO2 Sensor 83 Pulse Rhythm [Finger] Respiratory Rate 20 20 18 Respiratory Effort / Characteristics Non-Labored Respiratory Depth Normal Respiratory Pattern Regular Blood Pressure 164/84 H Blood Pressure [Right Arm] 134/76 154/75 H Blood Pressure Mean 110 Blood Pressure Mean [Right Arm] 95 101 Blood Pressure Position [Right Arm] Lying Pulse Oximetry 98 99 97 Oxygen Delivery Method Room Air 11/03/18 22:48 11/04/18 01:38 11/04/18 04:00 Temperature 37.0 C 36.8 C Temperature Source Oral Oral Sepsis Recent Fever Within 48 Hours Sepsis New/Unexplained Change in Mental Status Sepsis Action Taken by Nursing Pulse Rate 87 Pulse Rate [Finger] 90 83 Pulse Rate from SpO2 Sensor Pulse Rhythm [Finger] Regular Respiratory Rate 18 19 Respiratory Effort / Characteristics Respiratory Depth Normal Respiratory Pattern Blood Pressure Blood Pressure [Right Arm] 115/82 174/79 H Blood Pressure Mean Blood Pressure Mean [Right Arm] 93 110 Blood Pressure Position [Right Arm] Left Lateral Lying Pulse Oximetry 96 96 Oxygen Delivery Method Room Air Room Air GENERAL: Patient is awake, alert, and in no acute distress.Patient is resting comfortably and showing no signs of anxiety EYES: The conjunctivae are clear. The pupils are round and reactive. EARS, NOSE, MOUTH AND THROAT: The nose is without any evidence of any deformity. Mucous membranes are moist.Tongue is midline NECK: The neck is nontender and supple. RESPIRATORY: Normal respiratory effort is noted. There is no evidence of wheezing rhonchi or rales to auscultation. CARDIOVASCULAR: Regular rate and rhythm noted. There no murmurs rubs or gallops normal S1 normal S2 GASTROINTESTINAL: The abdomen is soft. Bowel sounds are present in all quadrants. Abdomen is nontender. MUSCULOSKELETAL/EXTREMITIES: There is no evidence of gross deformity. Full range of motion is noted in the hips and shoulders. SKIN: There is no obvious evidence of any rash. There are no petechiae, pallor or cyanosis noted. NEUROLOGIC: Patient is awake alert and oriented x3. Course 1144: The patient was evaluated in room C7. A history and physical were performed. 1423: I updated the patient on her results. She stated that she would like to go home and not be admitted. Case management will set an appointment up for the patient. 1440: I discussed the patient's case with Dr. Kohli who said to admit the patient. 1445: I updated the patient who agreed to admission. 1452: I discussed the patient's case with Dr. Ladan Myles who will evaluate the patient for further management. Consultations Consultation #1: Dr. Kohli Time: 14:40 Consultation #2: Dr. Ladan Myles Time: 14:52 Administered Medications Heparin Sodium (Porcine) (Heparin Sodium (Porcine)) 5,000 units SQ Q12 [facility] Stop: 12/03/18 20:59 Last Admin: 11/03/18 20:36 Dose: Not Given Documented by: [id number] Levothyroxine Sodium (Synthroid) 75 mcg PO [email or web address] [facility] Stop: 12/04/18 06:29 Last Admin: 11/04/18 06:37 Dose: 75 mcg Documented by: [id number] Ranitidine HCl (Zantac) 150 mg PO BID [facility] Stop: 12/03/18 20:59 Last Admin: 11/03/18 20:36 Dose: 150 mg Documented by: [id number] Venlafaxine HCl (Effexor Extended Release) 150 mg PO BID [facility] Stop: 12/03/18 20:59 Last Admin: 11/03/18 20:36 Dose: 150 mg Documented by: [id number] Discontinued Medications Al Hydrox/Mg Hydrox/Simethicone (Maalox) Confirm Administered Dose 30 ml .ROUTE .STK-MED ONE Stop: 11/03/18 12:11 Last Admin: 11/03/18 12:12 Dose: 30 ml Documented by: [id number] Al Hydrox/Mg Hydrox/Simethicone (Maalox) 30 ml PO NOW STA Stop: 11/03/18 12:14 Last Admin: 11/03/18 12:27 Dose: 30 ml Documented by: [id number] Al Hydrox/Mg Hydrox/Simethicone (Maalox) 30 ml PO NOW STA Stop: 11/03/18 12:28 Last Admin: 11/03/18 12:33 Dose: Not Given Documented by: [id number] Aspirin (Aspirin) 324 mg PO NOW STA Stop: 11/03/18 11:51 Last Admin: 11/03/18 12:08 Dose: 324 mg Documented by: [id number] Sodium Chloride (Nss) 500 mls @ 999 mls/hr IV .Q31M ZEB Stop: 11/03/18 12:30 Last Infusion: 11/03/18 13:11 Dose: 0 mls/hr Documented by: [id number] Admin: 11/03/18 12:27 Dose: 999 mls/hr Documented by: [id number] Lorazepam (Ativan) 0.5 mg in 1 mls @ 0.5 mls/min IV UD PRN PRN Reason: Agitation Stop: 12/03/18 15:56 Last Admin: 11/03/18 16:21 Dose: 0.5 mls/min Documented by: [id number] Medical Decision Making Differential Diagnosis Differential includes acute coronary syndrome, myocardial infarction, CVA, TIA, anemia, infection, pneumonia, UTI, pyelonephritis, poor nutrition, dehydration, electrolyte disturbance,hypoglycemia. Medical Records Attestation: I reviewed the patient's medical records. Home Medications Current Medication List: was personally reviewed by me Laboratory Data Attestation: I reviewed the patient's lab results. Result diagrams: 11/04/18 03:50 11/04/18 03:50 Lab Results 11/03/18 11/03/18 11/03/18 Range/Units 11:57 11:57 12:37 WBC 12.31 H (4.8-10.8) K/uL RBC 4.46 (4.2-5.4) M/uL Hgb 13.6 (12.0-16.0) g/dL Hct 40.0 (37-47) % MCV 89.7 (80-100) fL MCH 30.5 (25-34) pg MCHC 34.0 (32-36) g/dL RDW Std Deviation 44.7 (36.4-46.3) fL RDW Coeff of Ze 13.6 (11.5-14.5) % Plt Count 259 (130-400) K/uL MPV 9.5 (7.4-10.4) fL Immature Gran % (Auto) 0.2 % Neut % (Auto) 83.7 % Lymph % (Auto) 10.2 % [place] % (Auto) 5.8 % Eos % (Auto) 0.0 % Baso % (Auto) 0.1 % Immature Gran # (Auto) 0.02 (0.00-0.02) K/uL Neut # (Auto) 10.31 H (1.4-6.5) K/uL Lymph # (Auto) 1.25 (1.2-3.4) K/uL [place] # (Auto) 0.72 H (0.11-0.59) K/uL Eos # (Auto) 0.00 (0-0.5) K/uL Baso # (Auto) 0.01 (0-0.2) K/uL PT 10.6 (9.0-12.0) Seconds INR 1.0 (0.9-1.1) APTT 24.9 (21.0-31.0) Seconds PTT Ratio 0.9 Sodium 139 (136-145) mmol/L Potassium 3.8 (3.5-5.1) mmol/L Chloride 108 H (98-107) mmol/L Carbon Dioxide 25 (21-32) mmol/L Anion Gap 6.0 (3-11) BUN 21 H (7-18) mg/dl Creatinine 1.12 (0.6-1.2) mg/dl Est Cr Clr Drug Dosing 35.2 ml/min Est GFR ( Amer) 53.0 Est GFR (Non-Af Amer) 45.7 BUN/Creatinine Ratio 18.7 (10-20) Glucose 102 H (70-99) mg/dl Calcium 8.8 (8.5-10.1) mg/dl Magnesium 2.7 H (1.8-2.4) mg/dl Total Bilirubin 0.3 (0.2-1) mg/dl AST 15 (15-37) U/L ALT 22 (12-78) U/L Alkaline Phosphatase 90 (45-117) U/L Troponin I < 0.015 (0-0.045) ng/ml Total Protein 6.5 (6.4-8.2) gm/dl Albumin 3.6 (3.4-5.0) gm/dl Globulin 2.9 (2.5-4.0) gm/dl Albumin/Globulin Ratio 1.3 (0.9-2) Lipase 115 (73-393) U/L TSH 4.660 H (0.300-4.500) uIu/ml Free T4 1.41 (0.8-1.6) ng/dl 11/03/18 11/04/18 11/04/18 Range/Units 21:58 03:50 03:50 WBC 8.82 (4.8-10.8) K/uL RBC 4.01 L (4.2-5.4) M/uL Hgb 11.9 L (12.0-16.0) g/dL Hct 36.0 L (37-47) % MCV 89.8 (80-100) fL MCH 29.7 (25-34) pg MCHC 33.1 (32-36) g/dL RDW Std Deviation 45.0 (36.4-46.3) fL RDW Coeff of Ze 13.6 (11.5-14.5) % Plt Count 235 (130-400) K/uL MPV 9.6 (7.4-10.4) fL Immature Gran % (Auto) % Neut % (Auto) % Lymph % (Auto) % [place] % (Auto) % Eos % (Auto) % Baso % (Auto) % Immature Gran # (Auto) (0.00-0.02) K/uL Neut # (Auto) (1.4-6.5) K/uL Lymph # (Auto) (1.2-3.4) K/uL [place] # (Auto) (0.11-0.59) K/uL Eos # (Auto) (0-0.5) K/uL Baso # (Auto) (0-0.2) K/uL PT (9.0-12.0) Seconds INR (0.9-1.1) APTT (21.0-31.0) Seconds PTT Ratio Sodium 141 (136-145) mmol/L Potassium 4.1 (3.5-5.1) mmol/L Chloride 111 H (98-107) mmol/L Carbon Dioxide 29 (21-32) mmol/L Anion Gap 1.0 L (3-11) BUN 20 H (7-18) mg/dl Creatinine 1.10 (0.6-1.2) mg/dl Est Cr Clr Drug Dosing 3.2 ml/min Est GFR ( Amer) 54.1 Est GFR (Non-Af Amer) 46.7 BUN/Creatinine Ratio 18.4 (10-20) Glucose 90 (70-99) mg/dl Calcium 8.2 L (8.5-10.1) mg/dl Magnesium (1.8-2.4) mg/dl Total Bilirubin (0.2-1) mg/dl AST (15-37) U/L ALT (12-78) U/L Alkaline Phosphatase (45-117) U/L Troponin I < 0.015 < 0.015 (0-0.045) ng/ml Total Protein (6.4-8.2) gm/dl Albumin (3.4-5.0) gm/dl Globulin (2.5-4.0) gm/dl Albumin/Globulin Ratio (0.9-2) Lipase (73-393) U/L TSH (0.300-4.500) uIu/ml Free T4 (0.8-1.6) ng/dl Imaging Data Radiologist's Impression: Radiology results as stated below per my review and the radiologist's interpretation: XR chest 1V portable CLINICAL HISTORY: Chest Pain COMPARISON STUDY: Chest radiograph September 24, 2018. FINDINGS: Left breast/chest axillary surgical clips are noted. There is no pneumothorax or pleural effusion. No consolidation is present to suggest pneumonia. Minimal left basilar opacity suggests atelectasis or scarring. Cardiomediastinal silhouette is unremarkable. IMPRESSION: No acute cardiopulmonary findings. Electronically signed by: Yusuf Kohli M.D. 11/03/2018 12:32 PM ECG Data Attestation: I personally reviewed and interpreted this ECG as follows: Indication: weakness Rate (beats per minute): 77 Rhythm: normal sinus Findings: + RBBB; no PAC, no PVC and no ectopy Comparison ECG Date: from (07/14/18) Change: no significant change Blood Pressure Blood Pressure Findings: Elevated blood pressure Blood Pressure Disposition: further management by hospitalist JENNIFER Narrative The patient is an 83-year-old female who presented to the emergency department for an evaluation of chest discomfort. The patient was seen her primary care physician for an evaluation of upper extremity pain. The pain appeared to be exertional in nature. Her primary care physician felt this could be consistent with an angina equivalent and the patient was sent to the emergency department for further cardiac evaluation. Patient's EKG did not appear normal but appears very similar to a previous EKG the patient had. I discussed the patient's laboratory and radiographic studies with her. I also discussed the limitations of the emergency department work-up for chest pain with her. Ultimately we also discussed her case with her primary care physician who felt the patient would be nefit better from an inpatient cardiac work-up given the difficulty of scheduling an outpatient work-up for the patient as well as her risk factors for cardiac disease. I agree with this evaluation and I discussed her case with the on-call [facility] hospitalist. They have agreed to evaluate the patient in the emergency department for further management and disposition. Impression & Plan Chest pain, Abnormal ECG Discharge Plan Visit Data *Final* Discharge Date/Time: 11/03/18 16:40 Chief Complaint: Referred by Doctor Stated Complaint: FAMILY DOCTOR WANTS TO R/O CARDIAC PROBLEMS ED Provider: Irvin Molina Discharge Problem: Chest pain, Abnormal ECG Patient Disposition: Admitted As Inpatient Discharge Instructions Interventions: ED Discharge Assessment Last Done: 11/03/18 16:40 Discharge Problem: Chest pain Qualifiers: Chest pain type: unspecified Qualified Code(s): R07.9 - Chest pain, unspecified The scribe's documentation has been prepared under my direction and personally reviewed by me in its entirety. I confirm that the note above accurately reflects all work, treatment, procedures, and medical decision making performed by me.
[2018-11-03] MEDS ORDERED: LORazepam 0.5 MG/1 ML VIAL IV PRN ×2 (15:57→17:41)
--- NOTE | 2018-11-03 16:13 | History & Physical Report ---
Date of Service November 03, 2018 Assessment & Plan (1) Chest pain: Patient does have some possible anginal symptoms with a history of cerebrovascular disease which does give her some rest. She is on antihypertensive medications is not diabetic her last cholesterol checked in June 2018 show total cholesterol of 192 with an LDL of 90 There is no elevation of troponin or acute current of injury on EKG. Will keep patient observed in telemetry check 2 additional troponins and possibly proceed to echocardiographic stress testing on 11/04 patient is added in baby aspirin in addition to her Plavix for antiplatelet therapy at this time (2) Depression: Patient remains on effects or 150 twice daily (3) Hypothyroidism: Patient's TSH is up to free T4 is okay we will continue her Synthroid 75 mcg (4) Hypertension: Patient takes losartan as verapamil for blood pressure control these will be maintained History of Present Illness Primary Care Provider: Rupal Kohli MD 81-year-old female sent from primary care office for concern for acute coronary syndrome. Patient did not have any acute change in the EKG or elevated troponin. Patient describes over the last few weeks she is been having increased fatigue with bilateral arm discomfort followed by some nausea and overall feeling of being washed out which self resolved. Her friend is at the bedside states this occurs specifically after going shopping. We tried to question her about symptoms that occur when she exerts her self back around her place of residence she says that she does not recall that that is associated with it. With regard to her bilateral arm discomfort he can go down her arms or upper arms it is sometimes associate with some decreased smoking pipe liner strength in the left. Patient is a significant history of a previous stroke without residual effects and she typically takes Plavix therapy but no high potency statin. Patient does not have a history of any neck related injuries in the past to consider this being a cervical radiculopathy. Patient is markedly anxious and the urine is administered lorazepam by emergency room attending Allergies Allergy/AdvReac Type Severity Reaction Status Date / Time walnut Allergy Unknown + WITH Verified 11/03/18 12:08 ALLERGY TEST lactose AdvReac Intermediate GI SYMPTOMS Verified 11/03/18 12:08 aspirin AdvReac Mild stomach Verified 11/03/18 12:08 upset DUST Allergy Intermediate SINUS Uncoded 11/03/18 12:08 PROBLEM Home Medications Home Medications Medication Instructions Recorded Confirmed Type Melany-D 24 Hour 1 tab PO QAM 09/21/18 11/03/18 History Cataplex D 1 dose PO DAILY 09/21/18 11/03/18 History Probiotic 3,000 mmu cells PO DAILY 09/21/18 11/03/18 History albuterol sulfate 1 inh INHALATION QID PRN 09/21/18 11/03/18 History clopidogrel [Plavix] 75 mg PO QAM 09/21/18 11/03/18 History ketoconazole 1 applic TOPICAL UD 09/21/18 11/03/18 History levothyroxine 75 mcg PO UD 09/21/18 11/03/18 History losartan 25 mg PO QAM 09/21/18 11/03/18 History ranitidine HCl 150 mg PO BID 09/21/18 11/03/18 History venlafaxine 150 mg PO BID 09/21/18 11/03/18 History verapamil 180 mg PO QAM 09/21/18 11/03/18 History Past Med/Surg History Social History Preferred Language: Malay Communication Ability: Effective Beliefs That Will Affect Care: None Current Living Situation: Alone Feels Safe at Home: Yes Smoking Status: Never smoker Second Hand Exposure: No Hx Alcohol Use: Yes Alcohol type: beer Hx Substance Use: No Review of Systems Review of Systems: ROS: well nourished well developed. She appears very anxious No double vision blurry vision No problems with speech or swallowing No palpitations, chest pain or pressure, ER physician comments on chest pressure the patient did not specifically relate that story to me Patient mostly complains of pain down her arms bilaterally and the feeling of extreme fatigue No Wheezing or breathing issues no dyspnea on exertion She complains of nausea with associated arm discomfort and fatigue, she has no abdominal pain vomiting diarrhea changes in appetite or weight No burning urine she does complain of urine frequency no other changes in her urine No focal joint pain or muscle pain No skin rashes or oral lesions No unusual bruising or bleeding No focused back pain or numbness or loss of strength No changes in memory or confusion Physical Exam Physical Exam: The patient appeared well nourished and normally developed. Vital signs as documented. Head exam is unremarkable. normocephalic, atraumatic Neck is without jugular venous distension, thyromegaly, or lymphademopathy no bruits or JVD Lungs are clear to auscultation and percussion. Cardiac exam reveals Rhythm is regular. First and second heart sounds normal. Abdominal exam reveals normal bowel sounds, no masses, no organomegaly no bruits are heard no pulsatile masses Extremities are nonedematous and both pedal pulses are present Neurologic exam is A&Ox3, no focal deficits, strength is equal bilateral Psychologically seems anxious Skin is warm Dry without bruises or lesions Results & Data Vital Signs (Past 12 Hours) Vital Signs Temp Pulse Pulse Resp BP BP Pulse Ox 11/03/18 15:07 80 18 11/03/18 15:01 166/83 H 11/03/18 14:31 80 19 158/88 H 11/03/18 14:10 89 17 171/91 H 11/03/18 14:02 79 21 99 11/03/18 14:01 79 18 157/77 H 99 11/03/18 14:00 76 20 99 11/03/18 13:31 71 21 137/105 H 99 11/03/18 13:01 74 14 155/83 H 11/03/18 13:00 73 18 100 11/03/18 12:31 74 22 152/99 H 100 11/03/18 12:28 77 22 151/76 H 100 11/03/18 12:26 72 18 151/76 H 95 11/03/18 12:13 74 17 11/03/18 11:17 36.7 C 83 81 H 124/79 99 Diagnostic Findings Chest x-ray is unremarkable EKG shows sinus rhythm right bundle branch block with repolarization changes (1) Chest pain Chest pain type: unspecified Qualified Code(s): R07.9 - Chest pain, unspecified
[2018-11-03] MEDS ORDERED: MoRPHine SULFATE 2 MG/ML CARP IV PRN (17:41)
[2018-11-03] MEDS ORDERED: ONDANSETRON INJ 2 MG/ML 2 ML VIAL IV PRN (17:41)
[2018-11-03] MEDS ORDERED: NITROGLYCERIN SL 0.4 MG/TAB TAB SL PRN (17:41)
[2018-11-03] MEDS ORDERED: ACETAMINOPHEN 325 MG TAB PO PRN (17:41)
[2018-11-03] MEDS: VENLAFAXINE HCL XR 150 MG CAPXR PO SCH (20:36)
[2018-11-03] MEDS: HEPARIN SOD 5,000 UNIT/0.5 ML VIAL SQ SCH (20:36)
[2018-11-04 04:02] LABS: Hemoglobin 11.9 g/dL (12.0-16.0); Mean Corpuscular Hgb Conc 33.1 g/dL (32-36); Mean Corpuscular Volume 89.8 fL (80-100); Mean Platelet Volume 9.6 fL (7.4-10.4); Platelet Count 235 K/uL (130-400); RDW Coefficient of Variation 13.6 % (11.5-14.5); Red Blood Count 4.01 M/uL (4.2-5.4); White Blood Count 8.82 K/uL (4.8-10.8)
[2018-11-04 04:19] LABS: BUN Creatinine Ratio 18.4 (10-20); Blood Urea Nitrogen 20 mg/dl (7-18); Calcium 8.2 mg/dl (8.5-10.1); Carbon Dioxide 29 mmol/L (21-32); Chloride 111 mmol/L (98-107); Creatinine Clr Calc Pharmacy 3.2 ml/min; Est GFR (African American) 54.1; Est GFR (Non-African American) 46.7; Glucose 90 mg/dl (70-99); Potassium 4.1 mmol/L (3.5-5.1); Sodium 141 mmol/L (136-145)
[2018-11-04 04:23] LABS: Troponin I < 0.015 ng/ml (0-0.045)
[2018-11-04] MEDS ORDERED: LEVOTHYROXINE SODIUM 75 MCG TABLET PO SCH (06:30)
[2018-11-04] MEDS: VENLAFAXINE HCL XR 150 MG CAPXR PO SCH (08:21)
[2018-11-04] MEDS: HEPARIN SOD 5,000 UNIT/0.5 ML VIAL SQ SCH (08:22)
[2018-11-04] MEDS ORDERED: CLOPIDOGREL BISULFATE 75 MG TAB PO SCH (09:00)
[2018-11-04] MEDS ORDERED: ASPIRIN 81 MG ECTAB PO SCH (09:00)
[2018-11-04] MEDS ORDERED: LOSARTAN POTASSIUM 25 MG TAB PO SCH (09:00)
[2018-11-04] MEDS ORDERED: VERAPAMIL HCL 180 MG TABCR PO SCH (09:00)
[2018-11-04] MEDS ORDERED: PERFLUTREN LIPID MICROSPHERE (DEFINITY) IV ONE (12:13)
--- NOTE | 2018-11-04 16:27 | Discharge Summary ---
Date of Service November 04, 2018 Admission HPI Per Admitting Provider 81-year-old female sent from primary care office for concern for acute coronary syndrome. Patient did not have any acute change in the EKG or elevated troponin. Patient describes over the last few weeks she is been having increased fatigue with bilateral arm discomfort followed by some nausea and overall feeling of being washed out which self resolved. Her friend is at the bedside states this occurs specifically after going shopping. We tried to question her about symptoms that occur when she exerts her self back around her place of residence she says that she does not recall that that is associated with it. With regard to her bilateral arm discomfort he can go down her arms or upper arms it is sometimes associate with some decreased supervisor hand silvering strength in the left. Patient is a significant history of a previous stroke without residual effects and she typically takes Plavix therapy but no high potency statin. Patient does not have a history of any neck related injuries in the past to consider this being a cervical radiculopathy. Patient is markedly anxious and the urine is administered lorazepam by emergency room attending Principal Diagnosis Chest Pain Discharge Exam Constitutional WD/WN, vitals as above Eyes + anicteric sclerae ENMT Ears: no hearing impairment Neck normal visual inspection and trachea midline Respiratory normal respiratory effort, lungs clear to auscultation Cardiovascular RRR, no murmur, no edema Vessels: no JVD Extremities: normal capillary refill; no edema Gastrointestinal (Abdomen) Inspection/Auscultation: normal bowel sounds Percussion/Palpation: abdomen soft; abdomen nontender Musculoskeletal Head/Neck/Chest: normocephalic, head atraumatic and neck supple; no chest tenderness Extremities: extremities normal to inspection; normal strength Gait: normal gait Shoulder: + shoulder abnormal to inspection Skin no rashes, warm and dry Neurologic moves all extremities Psychiatric A+Ox3, euthymic affect Discharge Data Allergies Allergy/AdvReac Type Severity Reaction Status Date / Time walnut Allergy Unknown + WITH Verified 11/03/18 12:08 ALLERGY TEST lactose AdvReac Intermediate GI SYMPTOMS Verified 11/03/18 12:08 aspirin AdvReac Mild stomach Verified 11/03/18 12:08 upset DUST Allergy Intermediate SINUS Uncoded 11/03/18 12:08 PROBLEM Consultations 11/03/18 14:53 ED Decision to Admit Stat 11/03/18 17:41 Consult Case Management - Discharge Planning Routine Hospital Course (1) Chest pain: - Patient has had longstanding issues related to intermittent CP/fatigue/CAGE and has had some work-up with [facility] Cardiology without a clear etiology - Troponins x 3 negative; stress testing negative for ischemic findings - noted to have poor exercise tolerance - Discussed numerous possibilities with patient to include GI, Musculoskeletal, Resp, etc - patient does note that she wonder if it is stress induced and deconditioning which is just as likely -- States some reflux precaution and not eating late at night has helped with symptoms and encouraged to continue; she endorses some intermittent asthma so possibly PFTs could be warranted to assess as cause of some CAGE?; she doesn't complain of proximal muscle weakness/stiffness but PMR could be considered with ESR/CRP check? - She does have some risk factors for coronary disease and if ongoing symptoms could refer back to cardiology for evaluation for more invasive testing if warranted; Heart Score is around a 3 (2) Hypothyroidism: - TSH slightly elevated at 4.6 with normal T4 - could explain fatigue but not so much the sweating -- May simply be normal variant given age and given normal T4 - recommend repeat TSH in 6 weeks - did not make dosage adjustments of her Synthroid at this time (3) Hypertension: - Continue Losartan/Verapamil as previously prescribed Total Time Total Time Spent Total Time Spent (In Minutes): Greater than 30 minutes Discharge Plan Discharge Items Patient Disposition: Home - Self-Care Reason For Visit: CHEST PAIN Discharge Diagnosis: Chest Pain Discharge Goals: Decrease discomfort, Improve function and Prevent disease Activity: Resume your previous activity Non-emergency contact: Primary Care Provider Call non-emergency contact if: you have any medication questions, your symptoms worsen and your pain is unusual for you Follow-up/Referrals: Rupal Kohli MD [Primary Care Provider] - 11/10/18 10:30 am (Please, follow up at Dr. Kohli's office with Shi KONG on ThursdayNovember 10 at 10:30 am. *If you need to change this appointment, call the office at [phone].) Diet: Regular Addtl Provider Instructions: Chest Pain: - You were admitted to look at your heart as a cause of your discomfort. Thankfully your heart rhythm is good on monitor. It is a normal sinus rhythm (this is the normal heart rhythm the majority of people have) and the cardiac markers (troponin) was negative. -- A cardiac marker if elevated can tell us if something is causing damage to the heart muscle. Thankfully your cardiac markers are undetectable which is great. - You underwent a cardiac stress test. The purpose of this test is to see how your heart is working when you exert yourself. Thankfully this did not reveal abnormalities to suggest lack of oxygen flow to your heart. - It is not clear what is the cause of your symptoms. A couple options could be related to GI issues (reflux, stomach irritation, esophagus spasms), muscular/skeletal (tight back muscles/nerve irritation), respiratory (asthma),and could even be stress-induced. - In regards to fatigue, this could be simply deconditioning and with time you can work on getting your endurance up. If this does continue a consideration could be placed for a condition called polymyalgia rheumatica. There is no specific test for this but common symptoms include fatigue/tiredness, loss of appetite, depression, aches/pains mostly in shoulders/neck and sometimes hips and thighs. Commonly its more in the proximal muscles or the muscles closest to the center of your body. This condition is just when there is a lot of inflammation in the body and is treated with steroids. Could discuss with your family doctor if your symptoms do not improve and maybe additional tests or evaluations could be done. - If this is more stress related. Try and work on ways to help reduce stress and make sure you get good sleep and rest. Stress is a tough one to control but can cause a lot of symptoms on the body. Then that stress leads to anxiety which leads to more stress and then a vicious cycle. Focusing on doing things that you like to do, good rest, healthy eating/exercise, and other techniques like breathing/meditation/yoga help many people. - Given you had some asthma issues in the past it might be reasonable to have pulmonary function tests to assess how your lungs work. This may help explain some shortness of breath with exertion. With time we do lose the good elasticity of our lungs and if you have underlying asthma this could cause some shortness of breath when exertion. Underactive Thyroid: - You have an underactive thyroid and take Synthroid for. We checked your TSH (thyroid stimulating hormone) and normal is below 4.5 and you are at 4.6 which may just be a normal variant for you. Therefore, we checked a T4 which is one of the elements the thyroid produces and is normal so that means the thyroi d/synthroid is doing what it needs to. Therefore you should have this rechecked in 6 weeks. If it continues to stay elevated you may need a dose adjustment of your Synthroid. - The TSH has a reverse effect. So if you TSH is high that means the thyroid is underactive (or the synthroid isn't enough) and normally the symptoms you could have is fatigue, constipation, dry skin, weight gain, muscle weakness, sensitivity to cold. Whereas, having a hyper-thyroid could cause you to have more anxiety, racing heart rate, sweating, palpitations. - This likely doesn't explain your ongoing symptoms as you have had your TSH checked in the past and has been normal. Regardless, your family doctor will continue to monitor this and can make recommendations for dosing of your Synthroid if needed. Prescriptions: Continued verapamil 180 mg Tablet Extended Release 180 mg PO QAM RF: 0 venlafaxine 150 mg Capsule,Extended Release 24hr 150 mg PO BID RF: 0 clopidogrel [Plavix] 75 mg Tablet 75 mg PO QAM RF: 0 levothyroxine 75 mcg Tablet 75 mcg PO UD RF: 0 ranitidine HCl 150 mg Tablet 150 mg PO BID RF: 0 losartan 25 mg Tablet 25 mg PO QAM RF: 0 ketoconazole 1 % Shampoo 1 applic TOPICAL UD RF: 0 Melany-D 24 Hour 180-240 mg Tablet Extended Release 24 Hr 1 tab PO QAM RF: 0 Probiotic 3 billion cell Capsule 3,000 mmu cells PO DAILY RF: 0 Cataplex D 1 dose PO DAILY RF: 0 albuterol sulfate 90 mcg/actuation Aerosol Powdr Breath Activated 1 inh INHALATION QID PRN (Reason: SHORT OF BREATH) RF: 0 Stand-Alone Forms: [facility] Discharge Orders: Discharge Order (Routine); Ordered 11/04/18 Ordered By: Fide Ramirez Admission Data Admit Date/Time: 11/03/18 15:51 Attending Provider: Bryn Manley Admit Provider: Vineet Oviedo Primary Care Provider: Rupal Kohli Other Providers: Vineet Oviedo Service: Telemetry Medical Other Interventions: Discharge Summary Assessment (RN) Last Done: 11/04/18 15:50 Pending Studies at Discharge: No DC Date/Time DO NOT enter until pt leaves facility: 11/04/18 16:07
[2018-11-05] MEDS ORDERED: LEVOTHYROXINE SODIUM 150 MCG TABLET PO SCH (06:30)
== END 2018-11-04 16:07 | disposition home or self-care (01) ==
LOC: 2N 11:11 → ED 11:11 → SUATTDRO 15:51 → 2N 16:40

== ENCOUNTER 2023-12-15 14:44 | Inpatient (IN) ==
--- NOTE | 2023-12-15 14:50 | ED Triage Note ---
Date of Service December 15, 2023 Provider in Triage Author: Rosibel Cornell History of Present Illness This patient was briefly evaluated while in triage. An abbreviated physical exam was performed. This patient is a 88-year-old Female who presents to the ED for evaluation of vertigo. Pt. states symptoms started about 5am when she awoke. Denies history of similar symptoms. Pt. fell when she tried to stand or change positions. Last trip to the bathroom, patient was dragging her right leg. Called PCP and referred to ED for stroke evaluation. Onset of leg dragging 1400. Pt. did have CVA in 2016 without deficits. Physical Exam VITALS: Vitals are noted on the nurse's note and reviewed by myself. GENERAL: This is an 88 year old female, in no acute distress, nondiaphoretic, well-developed well-nourished. SKIN: No obvious rashes, edema, erythema HEAD: Normocephalic atraumatic. EYES: Conjunctivae without injection, sclerae without icterus. NECK: No JVD. LUNGS: No retractions or accessory muscle use. MUSCULOSKELETAL: Presents in wheelchair NEURO: Patient was alert and oriented to person place and time. No focal neurological deficits. Initial orders for labs and / or imaging were placed and patient was placed in the waiting area until a bed is available. Please see further documentation for the full ED course.
[2023-12-15 15:40] LABS: iSTAT Creatinine 1.3 mg/dl (0.6-1.3); iSTAT Hemoglobin 12.9 g/dl (12.0-16.0); iSTAT Ionized Calcium 1.11 mmol/l (1.12-1.32); iSTAT Potassium 4.4 mmol/L (3.3-5.0)
[2023-12-15 15:43] LABS: Basophils # (auto) 0.04 K/uL (0.00-0.20); Basophils % (auto) 0.5 %; Eosinophils # (auto) 0.11 K/uL (0.00-0.50); Eosinophils % (auto) 1.4 %; Hematocrit (blood only) 39.5 % (37.0-47.0); Hemoglobin 12.2 g/dl (12.0-16.0); Immature Granulocytes # (auto) 0.04 K/uL (0.01-0.20); Immature Granulocytes % (auto) 0.5 %; Lymphocytes # (auto) 0.98 K/uL (1.20-3.40); Lymphocytes % (auto) 12.7 %; Mean Corpuscular Hemoglobin 26.2 pg (25.0-34.0); Mean Corpuscular Hgb Conc 30.9 g/dL (32.0-36.0); Mean Corpuscular Volume 84.8 fL (80.0-100.0); Mean Platelet Volume 9.6 fL (9.4-12.4); Monocytes # (auto) 0.56 K/uL (0.11-0.59); Monocytes % (auto) 7.2 %; Neutrophils % (auto) 77.7 %; Platelet Count 256 K/uL (130-400); RDW Coefficient of Variation 25.1 % (11.5-14.5); Red Blood Count 4.66 M/uL (4.20-5.40); White Blood Count 7.73 K/ul (4.8-10.8)
[2023-12-15 16:01] LABS: Alanine Aminotransferase 9 U/L (7-52); Albumin Globulin Ratio 1.7 (0.9-2); Alkaline Phosphatase 62 U/L (34-104); Anion Gap 6 (3-11); Aspartate Aminotransferase 18 U/L (13-39); BUN Creatinine Ratio 17.1 (10-20); Bilirubin,Total 0.3 mg/dl (0.2-1.0); Blood Urea Nitrogen 21 mg/dl (6-23); Calcium 9.2 mg/dl (8.6-10.3); Carbon Dioxide 26 mmol/L (21-32); Chloride 110 mmol/L (98-107); Est GFR (African American) 45.7 ml/min; Est GFR (Non-African American) 39.4 ml/min; Globulin 2.4 gm/dl (2.5-4.0); Glucose 105 mg/dl (70-99(Fasting)); Magnesium 2.2 mg/dl (1.7-2.4); Potassium 4.4 mmol/L (3.5-5.1); Sodium 142 mmol/L (136-145); Total Protein 6.4 gm/dl (6.0-8.3)
[2023-12-15 16:02] LABS: Ovalocytes 1+; Polychromasia 1+
[2023-12-15 16:06] LABS: Troponin I High Sensitivity 5.7 pg/ml (0-14)
[2023-12-15 16:11] LABS: INR 0.9 (0.9-1.1); Partial Thromboplastin Ratio 0.9; Partial Thromboplastin Time 24 Seconds (21-31); Prothrombin Time 10.2 Seconds (9.0-12.0)
--- NOTE | 2023-12-15 16:12 | XRay Report ---
XR chest 1V portable CLINICAL HISTORY: neuro deficit, acute stroke suspected TECHNIQUE: Single frontal radiograph of the chest was obtained. Comparison: Comparison is made to chest radiograph 09/09/2021 FINDINGS: No lines and tubes are seen. The cardiomediastinal silhouette is stable. The lungs are clear. No evid ence of pleural effusion or pneumothorax. IMPRESSION: No acute chest disease. ACT 112: Negative or not required by law. Electronically signed by: Bryn Hobbs M.D. 12/15/2023 4:11 PM
--- NOTE | 2023-12-15 16:28 | XRay Report ---
XR pelvis 1-2V routine HISTORY: 88 years-old Female fall acute pelvic pain status post fall COMPARISON: CT 08/06/2021 TECHNIQUE: AP view of the pelvis FINDINGS: Right hemipelvis surgical clips. Mild osteoarthritis of the hips. Demineralized appearance of the bon es. No acute fracture, dislocation or avascular necrosis. Unremarkable soft tissues. IMPRESSION: No acute fracture identified. ACT 112: Negative or not required by law. The above report was generated using voice recognition software. It may contain grammatical, syntax o r spelling errors. Electronically signed by: Denis Esparza M.D. 12/15/2023 4:26 PM
[2023-12-15 16:48] LABS: Appearance Urine Clear (Clear); Bilirubin Urine Negative (Negative); Blood Urine Negative (Negative); Color Urine Yellow; Glucose Urine UA Negative (Negative); Ketones Urine Negative (Negative); Leukocyte Esterase Urine Negative (Negative); Nitrite Urine Negative (Negative); Protein Urine Negative (Negative); Specific Gravity Urine 1.011 (1.000-1.030); Urobilinogen Urine Negative (Negative); pH Urine 5.5 (4.5-7.5)
--- NOTE | 2023-12-15 16:53 | CT Scan Report ---
CT cervical spine wo con CLINICAL HISTORY: fall TECHNIQUE: Multidetector row helical CT of the cervical spine was performed without administration of intravenous contrast. Coronal and sagittal reformations were obtained. Automated dose lowering techn iques and/or adjustment according to patient size were utilized for this exam. Comparison: Comparison is made to CT cervical spine 04/13/2023 FINDINGS: No acute fractures or subluxations are identified. Degenerative changes are seen in the visualized sp ine. The alignment is normal. Soft tissues are unremarkable. IMPRESSION: Degenerative changes without evidence of acute bony injury. ACT 112: Negative or not required by law. Electronically signed by: Bryn Hobbs M.D. 12/15/2023 4:51 PM
--- NOTE | 2023-12-15 17:00 | CT Scan Report ---
CT head/brain wo con CLINICAL HISTORY: 88 years-old Female with neuro deficit, acute stroke suspected, fall in am. Acute stroke like symptoms TECHNIQUE: Multiple axial CT images of the head were obtained without contrast. A dose lowering tech nique was utilized adhering to the principles of ALARA. COMPARISON: 04/13/2023 FINDINGS: No acute intracranial hemorrhage, midline shift, intracranial mass, hydrocephalus, territorial ischem ia or abnormal extra-axial collection. Involutional changes with white matter hypodensities suggestiv e of chronic microvascular ischemic disease. The calvarium is intact. Prior bilateral lens repair. The paranasal sinuses, mastoid air cells, and m iddle ear cavities are clear. IMPRESSION: No acute intracranial abnormality identified. ACT 112: Negative or not required by law. The above report was generated using voice recognition software. It may contain grammatical, syntax o r spelling errors. Electronically signed by: Denis Esparza M.D. 12/15/2023 4:59 PM
--- NOTE | 2023-12-15 17:14 | Electrocardiogram Report ---
Test Reason : Blood Pressure : / mmHG Vent. Rate : 072 BPM Atrial Rate : 072 BPM P-R Int : 158 ms QRS Dur : 122 ms QT Int : 434 ms P-R-T Axes : 041 -25 -08 degrees QTc Int : 475 ms Normal sinus rhythm Possible Left atrial enlargement Right bundle branch block possible Inferior infarct (cited on or before 14-JUL-2018) Abnormal ECG Confirmed by Silvano Gonzalez ([id number]) on 12/15/2023 5:14:06 PM Referred By: Confirmed By:Joe Gonzalez
[2023-12-15] MEDS ORDERED: POLYETHYLENE (MIRALAX) 17 GM PACK PO PRN (17:40)
[2023-12-15] MEDS ORDERED: ACETAMINOPHEN 325 MG TAB PO PRN (17:40)
[2023-12-15] MEDS ORDERED: ONDANSETRON INJ 2 MG/ML 2 ML VIAL IV PRN (17:40)
[2023-12-15] MEDS ORDERED: MoRPHine SULFATE 2 MG/ML CARP IV PRN (17:43)
--- NOTE | 2023-12-15 18:32 | History & Physical Report ---
Date of Service December 15, 2023 Assessment & Plan (1) History of CVA (cerebrovascular accident) without residual deficits: Plan: presents with after fall, reports vertigo symptoms, TIA /CVA not ruled out BP is elevated neuro checks continue Plavix 75 mg daily MRI brain PT eval (2) Fall: Plan: no fx, denies LOC (3) TIA (transient ischemic attack): Plan: earlier right leg weakness, no focal deficit on exam, she was able to ambulate in the room continue Plavix statins (4) Hypothyroidism: Plan: continue Synthroid (5) Hypertension: Plan: on Verapamil 180 mg daily (6) Depression: Plan: continue home meds (7) Asthma: Plan: no exacerbation continue home meds (8) Hyperlipidemia: Plan: continue Statins History of Present Illness Chief Complaint: dizzy, fall this morning Primary Care Provider: Rupal Kohli MD 88 yo female with h/o CVA, HTN she is on Plavix every other day, asthma, neuropathy presents after a fall this morning, denies any headache, LOC, reports vomiting this am. Patient woke up this morning and felt weak, dizzy, fell when was trying to walk , daughter reports that patient was drugging her right leg. She denies legs weakness , reports neuropathy in both feet, no new numbness. Took BP meds last night. Denies visual changes, no difficulties swallowing. She was able to ambulate. No focal deficit on exam CT head no acute findings, no fx on XR. Allergies Allergy/AdvReac Type Severity Reaction Status Date / Time house dust Allergy Intermediate SINUS Verified 12/09/23 10:09 PROBLEM walnut Allergy Unknown + WITH Verified 12/09/23 10:09 ALLERGY TEST lactose AdvReac Intermediate GI SYMPTOMS Verified 12/09/23 10:09 aspirin AdvReac Mild stomach Verified 12/09/23 10:09 upset Home Medications Medication Instructions Recorded Confirmed Type cyclosporine 0.05 % eye drops in a 1 drp OPB Q12H 02/13/21 12/15/23 History dropperette (Restasis) peg 400-propylene glycol (PF) 0.4 1 drp ophthalmic (eye) BID 02/13/21 12/15/23 History %-0.3 % eye drops in a dropperette (Systane (PF)) mecobalamin (vitamin B12) 10,000 10,000 mcg IM MONTHLY 07/02/23 12/15/23 History mcg solution for injection pantoprazole 40 mg tablet,delayed 40 mg PO BID #180 tabs 08/26/23 12/15/23 Rx release mirtazapine 7.5 mg tablet 7.5 mg PO HS #90 tabs 11/25/23 12/15/23 Rx sumatriptan succinate 25 mg tablet 25 mg PO DAILY PRN migraine 11/25/23 12/15/23 Rx headache #27 tabs clopidogrel 75 mg tablet (Plavix) 75 mg PO Q OTHER DAY 12/09/23 12/15/23 History escitalopram oxalate 20 mg tablet 20 mg PO QAM 12/09/23 12/15/23 History levothyroxine 75 mcg tablet 75 mcg PO QAM 12/09/23 12/15/23 History verapamil 180 mg 24 hr 180 mg PO HS 12/09/23 12/15/23 History capsule,extended release hydroxyzine HCl 25 mg tablet 25 mg PO TID PRN Anxiety 12/15/23 12/15/23 History Past Med/Surg History Problem List (Updated 12/15/23 @ 18:47 by Lizet Peña MD) TIA (transient ischemic attack) Iron deficiency anemia Other cervical disc degeneration, mid-cervical region, unspecified level Sacroiliac joint pain Vitamin B12 deficiency (Chronic) Lumbar facet joint syndrome (Chronic) Spinal stenosis of lumbar region (Chronic) Greater trochanteric bursitis of both hips (Chronic) Chronic eczematous otitis externa of left ear (Chronic) Chronic migraine (Chronic) Vitamin D deficiency (Chronic) Urinary incontinence (Chronic) Tinnitus (Chronic) Sensorineural hearing loss (SNHL) of both ears (Chronic) Psoriasis (Chronic) Peripheral neuropathy (Chronic) Impaired fasting glucose (Chronic) Disc degeneration, lumbar (Chronic) Chronic sinusitis (Chronic) 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) no locking or clicking; no current issues Macular degeneration (Chronic) Hypothyroidism (Chronic) Hypertension (Chronic) Hyperlipidemia (Chronic) History of CVA (cerebrovascular accident) without residual deficits (Chronic) 2007 (REASON FOR PLAVIX) Gastroesophageal reflux disease (Chronic) Depression (Chronic) Asthma (Chronic) Anxiety (Chronic) Medical History Sensorineural hearing loss (SNHL) of both ears Spinal stenosis Vitamin D deficiency Migraine chronic Peripheral neuropathy feet/legs Lumbar degenerative disc disease Benign familial tremor TMJ (temporomandibular joint disorder) no locking or clicking per pt Macular degeneration Hypothyroidism Hypertension Hyperlipidemia History of CVA (cerebrovascular accident) 2007 > Plavix, no residual effects per pt GERD (gastroesophageal reflux disease) History of asthma no longer uses inhaler, resolved per pt Depression Anxiety Iron deficiency anemia Surgical History Hx of surgical procedure ablation bilateral L5 dorsal ramus and S1,S2,S3 lateral branches History of colonoscopy H/O bursectomy (02/2021) left trochanteric H/O foot surgery LEFT FOOT HARDWARE REMOVAL Lipoma of back REMOVED FROM NECK History of breast biopsy X 2 (BENIGN) History of carpal tunnel release LEFT History of bunionectomy LEFT (TOTAL OF 2 SURGERIES) History of total abdominal hysterectomy History of appendectomy History of tooth extraction History of endoscopic sinus surgery History of cataract surgery RT/LEFT History of tonsillectomy and adenoidectomy Family History Brother CHF (congestive heart failure) Other Coronary heart disease Dementia Heart disease Hypertension No family history of adverse response to anesthesia Denies family history of Ovarian cancer Prostate cancer Diabetes Myocardial infarction Breast cancer Colorectal cancer Social History Smoking Status: Never smoker Second Hand Exposure: No; Do You Dip or Chew Tobacco: No; Hx Alcohol Use: No Hx Substance Use: No Preferred Language: Hebrew Communication Ability: Effective Hearing Ability: Use of Hearing Aid Rectifying Attendant Required: No Beliefs That Will Affect Care: None marital status: Current Living Situation: Alone Current Living Situation Comment: ADULT COMPLEX current occupational status: retired Feels Safe at Home: Yes Safety Concerns Comment: Balance difficulty and fall concerns. Is having bathtub updated to walk in. Childhood Exposure to Second-Hand Smoke: No Diet: regular caffeine: Yes Dental Care, Regularly: Yes Physical Activity Frequency: Daily Physical Activity Frequency Comment: walk 15 mins Seatbelt Use: always Sunscreen Use: Yes Assistive Devices: Cane, Glasses, Hearing Aid - Bilateral and Walker Review of Systems Review of Systems: All systems reviewed & are unremarkable except as noted in Subjective Physical Exam Physical Exam: head atraumatic neck supple chest CTA b/l heart S1S2 regular abdomen soft, nt, nd , BS present legs no edema neuro AAO times 3, no focal deficit Results & Data Results & Data Vital Signs (Past 12 Hours) Vital Signs Temp Pulse Pulse Resp BP BP Pulse Ox 12/15/23 17:03 115 H 16 184/94 H 94 12/15/23 16:39 105 H 15 211/126 H 96 12/15/23 15:38 68 12/15/23 14:48 36.8 C 83 20 170/96 H 97 O2 Del Method 12/15/23 17:03 12/15/23 16:39 Room Air 12/15/23 15:38 12/15/23 14:48 Room Air Laboratory Results Abnormal lab results 12/15/23 12/15/23 Range/Units 15:22 15:27 MCHC 30.9 L (32.0-36.0) g/dL RDW Std Deviation 74.0 H (36.4-46.3) fL RDW Coeff of Ze 25.1 H (11.5-14.5) % Lymph # (Auto) 0.98 L (1.20-3.40) K/uL Chloride 110 H (98-107) mmol/L POC Anion Gap 11.0 L (16-25) mmol/L POC BUN 25 H (7-18) mg/dl Creatinine 1.23 H (0.6-1.2) mg/dl Glucose 105 H (70-99(Fasting)) mg/dl POC Glucose (other) 104 H (70-99) mg/dl POC Ioniz Calcium Blaise 1.11 L (1.12-1.32) mmol/l Globulin 2.4 L (2.5-4.0) gm/dl Diagnostic Findings Chest X-Ray 12/15/23 14:50 XR chest 1V portable CLINICAL HISTORY: neuro deficit, acute stroke suspected TECHNIQUE: Single frontal radiograph of the chest was obtained. Comparison: Comparison is made to chest radiograph 09/09/2021 FINDINGS: No lines and tubes are seen. The cardiomediastinal silhouette is stable. The lungs are clear. No evidence of pleural effusion or pneumothorax. IMPRESSION: No acute chest disease. ACT 112: Negative or not required by law. Electronically signed by: Bryn Hobbs M.D. 12/15/2023 4:[address] 12/15/23 14:50 CT head/brain wo con CLINICAL HISTORY: 88 years-old Female with neuro deficit, acute stroke suspected, fall in am. Acute stroke like symptoms TECHNIQUE: Multiple axial CT images of the head were obtained without contrast. A dose lowering technique was utilized adhering to the principles of ALARA. COMPARISON: 04/13/2023 FINDINGS: No acute intracranial hemorrhage, midline shift, intracranial mass, hydrocephalus, territorial ischemia or abnormal extra-axial collection. Involutional changes with white matter hypodensities suggestive of chronic microvascular ischemic disease. The calvarium is intact. Prior bilateral lens repair. The paranasal sinuses, mastoid air cells, and middle ear cavities are clear. IMPRESSION: No acute intracranial abnormality identified. ACT 112: Negative or not required by law. The above report was generated using voice recognition software. It may contain grammatical, syntax or spelling errors. Electronically signed by: Denis Esparza M.D. 12/15/2023 4:[address] 12/15/23 15:25 CT cervical spine wo con CLINICAL HISTORY: fall TECHNIQUE: Multidetector row helical CT of the cervical spine was performed without administration of intravenous contrast. Coronal and sagittal reformations were obtained. Automated dose lowering techniques and/or adjustment according to patient size were utilized for this exam. Comparison: Comparison is made to CT cervical spine 04/13/2023 FINDINGS: No acute fractures or subluxations are identified. Degenerative changes are seen in the visualized spine. The alignment is normal. Soft tissues are unremarkable. IMPRESSION: Degenerative changes without evidence of acute bony injury. ACT 112: Negative or not required by law. Electronically signed by: Bryn Hobbs M.D. 12/15/2023 4:51 PM Pelvis X-Ray 12/15/23 15:25 XR pelvis 1-2V routine HISTORY: 88 years-old Female fall acute pelvic pain status post fall COMPARISON: CT 08/06/2021 TECHNIQUE: AP view of the pelvis FINDINGS: Right hemipelvis surgical clips. Mild osteoarthritis of the hips. Demineralized appearance of the bones. No acute fracture, dislocation or avascular necrosis. Unremarkable soft tissues. IMPRESSION: No acute fracture identified. ACT 112: Negative or not required by law. The above report was generated using voice recognition software. It may contain grammatical, syntax or spelling errors. Electronically signed by: Denis Esparza M.D. 12/15/2023 4:26 PM Code Status & VTE Plan Code Status DNR PG Care Time/CCT Total # of Minutes Spent Total Time Spent with Patient: Total time spent is greater than 50% in coordination of care (as documented) at patient's floor/unit and/or counseling patient: Coding Level of Care Code 69584 INT INP/OBS CARE 3/75MIN Diagnoses History of CVA (cerebrovascular accident) without residual deficits Z86.73 Fall W19.XXXA Encounter type: initial encounter TIA (transient ischemic attack) G45.9 Hypothyroidism E03.9 Hypertension I10 Depression F32.9 Asthma J45.909 Hyperlipidemia E78.5 (2) Fall Encounter type: initial encounter Qualified Code(s): W19.XXXA - Unspecified fall, initial encounter
[2023-12-15] MEDS ORDERED: hydrALAZINE 10 MG TAB PO PRN (18:56)
--- NOTE | 2023-12-15 20:37 | Magnetic Resonance Report ---
MR brain wo con CLINICAL HISTORY: leg weakness TECHNIQUE: Multiplanar and multisequence MR images of the brain were obtained without intravenous con trast. Comparison: None available at the time of this dictation. FINDINGS: No abnormal restricted diffusion is identified. The white matter is unremarkable. Ex vacuo ventriculo megaly and sulcal enlargement is noted compatible with diffuse volume loss. No mass is seen. There is no mass effect or midline shift. There is no evidence of acute intraparenchymal hemorrhage. No extra axial fluid collections are seen. The corpus callosum, pituitary gland, and cerebellar tonsils appea r grossly unremarkable. Flow voids of the major intracranial arterial vessels are identified. The imaged portions of the para nasal sinuses, mastoid air cells, and orbits are unremarkable. IMPRESSION: No acute abnormality and in particular no evidence of acute infarct. ACT 112: Negative or not required by law. Electronically signed by: Bryn Hobbs M.D. 12/15/2023 8:35 PM
--- NOTE | 2023-12-15 20:43 | Emergency Department Note ---
History of Present Illness General Chief complaint: Illness Stated complaint: DIZZY, FALL, REF BY DOC, TROUBLE WALKING, NAUSEA Time Seen by Provider: 12/15/23 15:18 History of Present Illness Provider complaint: Fall right lower extremity weakness Maximum Pain Intensity: 6 89-year-old female presents emergency department for fall and right lower extremity weakness. Patient states she woke up at 5 AM to go use the restroom and fell. She went back to bed and when she woke up she felt very weak. Daughter reports that the patient was having difficulty moving her right lower extremity. Daughter reports patient was having nausea and vomiting. No blood thinners. Home Medications Medication Instructions Recorded Confirmed Type cyclosporine 0.05 % eye drops in a 1 drp OPB Q12H 02/13/21 12/15/23 History dropperette (Restasis) peg 400-propylene glycol (PF) 0.4 1 drp ophthalmic (eye) BID 02/13/21 12/15/23 History %-0.3 % eye drops in a dropperette (Systane (PF)) mecobalamin (vitamin B12) 10,000 10,000 mcg IM MONTHLY 07/02/23 12/15/23 History mcg solution for injection pantoprazole 40 mg tablet,delayed 40 mg PO BID #180 tabs 08/26/23 12/15/23 Rx release mirtazapine 7.5 mg tablet 7.5 mg PO HS #90 tabs 11/25/23 12/15/23 Rx sumatriptan succinate 25 mg tablet 25 mg PO DAILY PRN migraine 11/25/23 12/15/23 Rx headache #27 tabs clopidogrel 75 mg tablet (Plavix) 75 mg PO Q OTHER DAY 12/09/23 12/15/23 History escitalopram oxalate 20 mg tablet 20 mg PO QAM 12/09/23 12/15/23 History levothyroxine 75 mcg tablet 75 mcg PO QAM 12/09/23 12/15/23 History verapamil 180 mg 24 hr 180 mg PO HS 12/09/23 12/15/23 History capsule,extended release hydroxyzine HCl 25 mg tablet 25 mg PO TID PRN Anxiety 12/15/23 12/15/23 History Allergies Allergy/AdvReac Type Severity Reaction Status Date / Time house dust Allergy Intermediate SINUS Verified 12/09/23 10:09 PROBLEM walnut Allergy Unknown + WITH Verified 12/09/23 10:09 ALLERGY TEST lactose AdvReac Intermediate GI SYMPTOMS Verified 12/09/23 10:09 aspirin AdvReac Mild stomach Verified 12/09/23 10:09 upset Past Med/Surg History Problem List (Updated 12/15/23 @ 20:52 by Adryan Jacome MD) CHI (closed head injury) (Acute) Stroke-like symptoms (Acute) TIA (transient ischemic attack) Iron deficiency anemia Other cervical disc degeneration, mid-cervical region, unspecified level Sacroiliac joint pain Vitamin B12 deficiency (Chronic) Lumbar facet joint syndrome (Chronic) Spinal stenosis of lumbar region (Chronic) Greater trochanteric bursitis of both hips (Chronic) Chronic eczematous otitis externa of left ear (Chronic) Chronic migraine (Chronic) Vitamin D deficiency (Chronic) Urinary incontinence (Chronic) Tinnitus (Chronic) Sensorineural hearing loss (SNHL) of both ears (Chronic) Psoriasis (Chronic) Peripheral neuropathy (Chronic) Impaired fasting glucose (Chronic) Disc degeneration, lumbar (Chronic) Chronic sinusitis (Chronic) 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) no locking or clicking; no current issues Macular degeneration (Chronic) Hypothyroidism (Chronic) Hypertension (Chronic) Hyperlipidemia (Chronic) History of CVA (cerebrovascular accident) without residual deficits (Chronic) 2007 (REASON FOR PLAVIX) Gastroesophageal reflux disease (Chronic) Depression (Chronic) Asthma (Chronic) Anxiety (Chronic) Medical History Sensorineural hearing loss (SNHL) of both ears Spinal stenosis Vitamin D deficiency Migraine chronic Peripheral neuropathy feet/legs Lumbar degenerative disc disease Benign familial tremor TMJ (temporomandibular joint disorder) no locking or clicking per pt Macular degeneration Hypothyroidism Hypertension Hyperlipidemia History of CVA (cerebrovascular accident) 2007 > Plavix, no residual effects per pt GERD (gastroesophageal reflux disease) History of asthma no longer uses inhaler, resolved per pt Depression Anxiety Iron deficiency anemia Surgical History Hx of surgical procedure ablation bilateral L5 dorsal ramus and S1,S2,S3 lateral branches History of colonoscopy H/O bursectomy (02/2021) left trochanteric H/O foot surgery LEFT FOOT HARDWARE REMOVAL Lipoma of back REMOVED FROM NECK History of breast biopsy X 2 (BENIGN) History of carpal tunnel release LEFT History of bunionectomy LEFT (TOTAL OF 2 SURGERIES) History of total abdominal hysterectomy History of appendectomy History of tooth extraction History of endoscopic sinus surgery History of cataract surgery RT/LEFT History of tonsillectomy and adenoidectomy Family History Brother CHF (congestive heart failure) Other Coronary heart disease Dementia Heart disease Hypertension No family history of adverse response to anesthesia Denies family history of Ovarian cancer Prostate cancer Diabetes Myocardial infarction Breast cancer Colorectal cancer Social History Smoking Status: Never smoker Second Hand Exposure: No; Do You Dip or Chew Tobacco: No; Hx Alcohol Use: No Hx Substance Use: No Preferred Language: Upper Sorbian Communication Ability: Effective Hearing Ability: Use of Hearing Aid Ending Machine Operator Required: No Beliefs That Will Affect Care: None marital status: Current Living Situation: Alone Current Living Situation Comment: ADULT COMPLEX current occupational status: retired Feels Safe at Home: Yes Safety Concerns Comment: Balance difficulty and fall concerns. Is having bathtub updated to walk in. Childhood Exposure to Second-Hand Smoke: No Diet: regular caffeine: Yes Dental Care, Regularly: Yes Physical Activity Frequency: Daily Physical Activity Frequency Comment: walk 15 mins Seatbelt Use: always Sunscreen Use: Yes Assistive Devices: Cane, Glasses, Hearing Aid - Bilateral and Walker Physical Exam Vital Signs Vital Signs - 24 hr 12/15/23 14:48 12/15/23 15:38 12/15/23 16:39 Temperature 36.8 C Temperature Source Temporal Artery Scan Pulse Rate 83 68 Pulse Rate [Right Finger] 105 H Pulse Rhythm [Right Finger] Respiratory Rate 20 15 Respiratory Effort / Characteristics Non-Labored Spontaneous Respiratory Depth Normal Respiratory Pattern Blood Pressure 170/96 H Blood Pressure [Right Arm] 211/126 H Blood Pressure Mean 120 Blood Pressure Mean [Right Arm] 154 Pulse Oximetry 97 96 Oxygen Delivery Method Room Air Room Air Oxygen Flow Rate Sepsis Recent Fever Within 48 Hours No Sepsis New/Unexplained Change in Mental Status No Sepsis Action Taken by Nursing No Action Required 12/15/23 17:03 12/15/23 18:06 12/15/23 18:32 Temperature Temperature Source Pulse Rate 86 Pulse Rate [Right Finger] 115 H 76 Pulse Rhythm [Right Finger] Respiratory Rate 16 20 16 Respiratory Effort / Characteristics Respiratory Depth Respiratory Pattern Blood Pressure 181/92 H Blood Pressure [Right Arm] 184/94 H 181/92 H Blood Pressure Mean 121 Blood Pressure Mean [Right Arm] 124 121 Pulse Oximetry 94 97 94 Oxygen Delivery Method Room Air Room Air Oxygen Flow Rate 2 Sepsis Recent Fever Within 48 Hours Sepsis New/Unexplained Change in Mental Status Sepsis Action Taken by Nursing 12/15/23 19:54 12/15/23 20:00 12/15/23 20:30 Temperature Temperature Source Pulse Rate 84 Pulse Rate [Right Finger] 81 81 Pulse Rhythm [Right Finger] Regular Regular Respiratory Rate 17 20 19 Respiratory Effort / Characteristics Non-Labored Spontaneous Non-Labored Spontaneous Respiratory Depth Normal Normal Respiratory Pattern Regular Regular Blood Pressure 184/108 H Blood Pressure [Right Arm] 175/92 H 189/95 H Blood Pressure Mean 133 Blood Pressure Mean [Right Arm] 119 126 Pulse Oximetry 95 97 96 Oxygen Delivery Method Room Air Room Air Room Air Oxygen Flow Rate 2 Sepsis Recent Fever Within 48 Hours Sepsis New/Unexplained Change in Mental Status Sepsis Action Taken by Nursing Physical Exam GENERAL: oriented to person, place, and time. appears well-developed and well- nourished. HENT: Exam performed. - Head: Normocephalic and atraumatic. EYES: Conjunctivae and EOM are normal. Right eye exhibits no discharge. Left eye exhibits no discharge. No scleral icterus. NECK: Normal range of motion. Neck supple. No JVD present. CV: Normal rate, regular rhythm, normal heart sounds and intact distal pulses. There is no peripheral edema. Palpable radial pulses bue. PULM/CHEST: Effort normal and breath sounds normal. No respiratory distress. No stridor. no wheezes. no rales. ABD: The abdomen is soft. There is no tenderness. NEURO: NIHSS: 2 (6b:1, 7:1) Course Course 1518: The patient was evaluated in room B8. A complete history and physical exam was performed Cardiac monitoring: An order was placed for continuous cardiac monitoring. The monitor shows a rate of 70 with sinus rhythm interpreted by me No code stroke was called as patient's last well-known normal was last night when she went to bed as well as patient experiencing trauma falling down earlier today. 1725: Vital signs stable. CT of the head and C-spine within normal limits. Labs within normal limits. Patient be admitted to [facility] team for strokelike symptoms. Medical Decision Making Laboratory Data Attestation: I reviewed the patient's lab results. 12/15/23 15:22 12/15/23 15:22 Lab Results 12/15/23 12/15/23 12/15/23 Range/Units 15:22 15:27 16:33 WBC 7.73 (4.8-10.8) K/ul RBC 4.66 (4.20-5.40) M/uL Hgb 12.2 (12.0-16.0) g/dl POC Hgb 12.9 (12.0-16.0) g/dl Hct 39.5 (37.0-47.0) % POC Hct 38 (37-47) % MCV 84.8 (80.0-100.0) fL MCH 26.2 (25.0-34.0) pg MCHC 30.9 L (32.0-36.0) g/dL RDW Std Deviation 74.0 H (36.4-46.3) fL RDW Coeff of Ze 25.1 H (11.5-14.5) % Plt Count 256 (130-400) K/uL MPV 9.6 (9.4-12.4) fL Immature Gran % (Auto) 0.5 % Neut % (Auto) 77.7 % Lymph % (Auto) 12.7 % Turner % (Auto) 7.2 % Eos % (Auto) 1.4 % Baso % (Auto) 0.5 % Neut # (Auto) 6.00 (1.40-6.50) K/uL Lymph # (Auto) 0.98 L (1.20-3.40) K/uL Turner # (Auto) 0.56 (0.11-0.59) K/uL Eos # (Auto) 0.11 (0.00-0.50) K/uL Baso # (Auto) 0.04 (0.00-0.20) K/uL Immature Gran # (Auto) 0.04 (0.01-0.20) K/uL Polychromasia 1+ Ovalocytes 1+ PT 10.2 (9.0-12.0) Seconds INR 0.9 (0.9-1.1) APTT 24 (21-31) Seconds PTT Ratio 0.9 POC Sodium 141 (135-144) mmol/L Sodium 142 (136-145) mmol/L POC Potassium 4.4 (3.3-5.0) mmol/L Potassium 4.4 (3.5-5.1) mmol/L POC Chloride 110 (101-112) mmol/L Chloride 110 H (98-107) mmol/L Carbon Dioxide 26 (21-32) mmol/L POC Total CO2 26 (24-31) mmol/L Anion Gap 6 (3-11) POC Anion Gap 11.0 L (16-25) mmol/L POC BUN 25 H (7-18) mg/dl BUN 21 (6-23) mg/dl Creatinine 1.23 H (0.6-1.2) mg/dl POC Creatinine 1.3 (0.6-1.3) mg/dl Est Cr Clr Drug Dosing Not Reportable Est GFR ( Amer) 45.7 ml/min Est GFR (Non-Af Amer) 39.4 ml/min BUN/Creatinine Ratio 17.1 (10-20) Glucose 105 H (70-99(Fasting)) mg/dl POC Glucose (other) 104 H (70-99) mg/dl Calcium 9.2 (8.6-10.3) mg/dl POC Ioniz Calcium Blaise 1.11 L (1.12-1.32) mmol/l Magnesium 2.2 (1.7-2.4) mg/dl Total Bilirubin 0.3 (0.2-1.0) mg/dl AST 18 (13-39) U/L ALT 9 (7-52) U/L Alkaline Phosphatase 62 (34-104) U/L Troponin I High Sens 5.7 (0-14) pg/ml Total Protein 6.4 (6.0-8.3) gm/dl Albumin 4.0 (3.4-5.0) gm/dl Globulin 2.4 L (2.5-4.0) gm/dl Albumin/Globulin Ratio 1.7 (0.9-2) Urine Color Yellow Urine Appearance Clear (Clear) Urine pH 5.5 (4.5-7.5) Ur Specific [place] 1.011 (1.000-1.030) Urine Protein Negative (Negative) Urine Glucose (UA) Negative (Negative) Urine Ketones Negative (Negative) Urine Blood Negative (Negative) Urine Nitrite Negative (Negative) Urine Bilirubin Negative (Negative) Urine Urobilinogen Negative (Negative) Ur Leukocyte Esterase Negative (Negative) Imaging Data Attestation: I personally reviewed and interpreted this imaging study as follows: My Impression: CT head: No ICH Radiologist's Impression: Chest X-Ray 12/15/23 14:50 XR chest 1V portable CLINICAL HISTORY: neuro deficit, acute stroke suspected TECHNIQUE: Single frontal radiograph of the chest was obtained. Comparison: Comparison is made to chest radiograph 09/09/2021 FINDINGS: No lines and tubes are seen. The cardiomediastinal silhouette is stable. The lungs are clear. No evidence of pleural effusion or pneumothorax. IMPRESSION: No acute chest disease. ACT 112: Negative or not required by law. Electronically signed by: Bryn Hobbs M.D. 12/15/2023 4:[address] 12/15/23 14:50 CT head/brain wo con CLINICAL HISTORY: 88 years-old Female with neuro deficit, acute stroke suspected, fall in am. Acute stroke like symptoms TECHNIQUE: Multiple axial CT images of the head were obtained without contrast. A dose lowering technique was utilized adhering to the principles of ALARA. COMPARISON: 04/13/2023 FINDINGS: No acute intracranial hemorrhage, midline shift, intracranial mass, hydrocephalus, territorial ischemia or abnormal extra-axial collection. Involutional changes with white matter hypodensities suggestive of chronic microvascular ischemic disease. The calvarium is intact. Prior bilateral lens repair. The paranasal sinuses, mastoid air cells, and middle ear cavities are clear. IMPRESSION: No acute intracranial abnormality identified. ACT 112: Negative or not required by law. The above report was generated using voice recognition software. It may contain grammatical, syntax or spelling errors. Electronically signed by: Denis Esparza M.D. 12/15/2023 4:[address] 12/15/23 15:25 CT cervical spine wo con CLINICAL HISTORY: fall TECHNIQUE: Multidetector row helical CT of the cervical spine was performed without administration of intravenous contrast. Coronal and sagittal reformations were obtained. Automated dose lowering techniques and/or adjustment according to patient size were utilized for this exam. Comparison: Comparison is made to CT cervical spine 04/13/2023 FINDINGS: No acute fractures or subluxations are identified. Degenerative changes are seen in the visualized spine. The alignment is normal. Soft tissues are unremarkable. IMPRESSION: Degenerative changes without evidence of acute bony injury. ACT 112: Negative or not required by law. Electronically signed by: Bryn Hobbs M.D. 12/15/2023 4:51 PM Pelvis X-Ray 12/15/23 15:25 XR pelvis 1-2V routine HISTORY: 88 years-old Female fall acute pelvic pain status post fall COMPARISON: CT 08/06/2021 TECHNIQUE: AP view of the pelvis FINDINGS: Right hemipelvis surgical clips. Mild osteoarthritis of the hips. Demineralized appearance of the bones. No acute fracture, dislocation or avascular necrosis. Unremarkable soft tissues. IMPRESSION: No acute fracture identified. ACT 112: Negative or not required by law. The above report was generated using voice recognition software. It may contain grammatical, syntax or spelling errors. Electronically signed by: Denis Esparza M.D. 12/15/2023 4:26 PM Brain MRI 12/15/23 18:18 MR brain wo con CLINICAL HISTORY: leg weakness TECHNIQUE: Multiplanar and multisequence MR images of the brain were obtained without intravenous contrast. Comparison: None available at the time of this dictation. FINDINGS: No abnormal restricted diffusion is identified. The white matter is unremarkable. Ex vacuo ventriculomegaly and sulcal enlargement is noted compatible with diffuse volume loss. No mass is seen. There is no mass effect or midline shift. There is no evidence of acute intraparenchymal hemorrhage. No extra axial fluid collections are seen. The corpus callosum, pituitary gland, and cerebellar tonsils appear grossly unremarkable. Flow voids of the major intracranial arterial vessels are identified. The imaged portions of the paranasal sinuses, mastoid air cells, and orbits are unremarkable. IMPRESSION: No acute abnormality and in particular no evidence of acute infarct. ACT 112: Negative or not required by law. Electronically signed by: Bryn Hobbs M.D. 12/15/2023 8:35 PM ECG Data Attestation: I personally reviewed and interpreted this ECG as follows: Additional Comments: Sinus rhythm with rate of 72. VT 158 QRS [address] elevation or ST depression. [facility] Narrative 1518: The patient was evaluated in room B8. A complete history and physical exam was performed Cardiac monitoring: An order was placed for continuous cardiac monitoring. The monitor shows a rate of 70 with sinus rhythm interpreted by me No code stroke was called as patient's last well-known normal was last night when she went to bed as well as patient experiencing trauma falling down earlier today. 1725: Vital signs stable. CT of the head and C-spine within normal limits. Labs within normal limits. Patient be admitted to [facility] team for strokelike symptoms. Impression & Plan Stroke-like symptoms, CHI (closed head injury) Discharge Plan Visit Data Chief Complaint: Illness Stated Complaint: DIZZY, FALL, REF BY DOC, TROUBLE WALKING, NAUSEA ED Provider: Adryan Jacome Discharge Problem: Stroke-like symptoms, CHI (closed head injury) Patient Disposition: Being Evaluated by Hospitalist Prescriptions Prescriptions: No Action mecobalamin (vitamin B12) 10,000 mcg recon soln 10,000 mcg IM MONTHLY sumatriptan succinate 25 mg tablet 25 mg PO DAILY PRN (Reason: migraine headache) Qty: 27 3RF mirtazapine 7.5 mg tablet 7.5 mg PO HS Qty: 90 3RF pantoprazole 40 mg tablet,delayed release (DR/EC) 40 mg PO BID Qty: 180 1RF cyclosporine [Restasis] 0.05 % Dropperette 1 drp OPB Q12H Systane (PF) 0.4-0.3 % Dropperette 1 drp OPHTHALMIC (EYE) BID clopidogrel [Plavix] 75 mg tablet 75 mg PO Q OTHER DAY levothyroxine 75 mcg tablet 75 mcg PO QAM verapamil 180 mg capsule,ext rel. pellets 24 hr 180 mg PO HS escitalopram oxalate 20 mg tablet 20 mg PO QAM Rx Instructions: TAKE 1 TABLET DAILY hydroxyzine HCl 25 mg tablet 25 mg PO TID PRN (Reason: Anxiety) Patient Comments: takes only as needed per pt 12/09/23 Rx Instructions: for anxiety Discharge Problem: CHI (closed head injury) Qualifiers: Encounter type: initial encounter Qualified Code(s): S09.90XA - Unspecified injury of head, initial encounter
[2023-12-15] MEDS ORDERED: FLUTICASONE PROPIONATE NA SPR 16 GM BTL NAE PRN (20:57)
[2023-12-15] MEDS: SODIUM CHLORIDE 0.9% 1,000 ML IV SCH (21:19)
[2023-12-15] MEDS ORDERED: ARTIFICIAL TEARS OP PRN (21:26)
[2023-12-15] MEDS: ARTIFICIAL TEARS OP SCH (21:54)
[2023-12-15] MEDS: CLOPIDOGREL BISULFATE 75 MG TAB PO STA (21:54)
[2023-12-15] MEDS: CHOLECALCIFEROL 25 MCG (1000 UNITS) TAB PO SCH (21:54)
[2023-12-15] MEDS: MIRTAZAPINE TAB 15 MG TAB PO SCH (21:55)
[2023-12-15] MEDS: hydrOXYzine HCl 25 MG TAB PO SCH (21:55)
[2023-12-15] MEDS: PANTOprazole 40 MG TAB PO SCH (21:57)
[2023-12-15] MEDS: VERAPAMIL HCL 180 MG TABCR PO SCH (21:58)
[2023-12-15] MEDS: HEPARIN SOD 5,000 UNIT/0.5 ML VIAL SQ SCH (21:58)
[2023-12-15] MEDS: MELATONIN 3 MG TAB PO PRN (22:48)
[2023-12-16] MEDS: LEVOTHYROXINE SODIUM 75 MCG TABLET PO SCH (05:39)
[2023-12-16 08:23] LABS: BUN Creatinine Ratio 15.7 (10-20); Calcium 8.4 mg/dl (8.6-10.3); Creatinine Clr Calc Pharmacy 29.3 ml/min; Est GFR (African American) 57.3 ml/min; Est GFR (Non-African American) 49.4 ml/min; Potassium 4.3 mmol/L (3.5-5.1)
[2023-12-16] MEDS: LIDOCAINE 5% 1 PATCH TD SCH (08:57)
[2023-12-16] MEDS: ESCITALOPRAM OXALATE 20 MG TAB PO SCH (08:58)
--- NOTE | 2023-12-16 09:11 | Ultrasound Report ---
US carotid doppler BI CLINICAL HISTORY: 88 years-old Female with dizziness. Acute dizziness COMPARISON: Brain MRI 12/15/2023, carotid Doppler 01/09/2006. TECHNIQUE: Multiple real time sonographic images of the carotid bifurcations were obtained assessing carver scale, color Doppler and spectral wave form appearance FINDINGS: RIGHT CAROTID: The peak systolic velocity measured within the right ICA is 36 cm/sec. The end diast olic velocity measured 9 cm/sec. The ICA to CCA ratio measured 0.58 which correlates with a stenosis of 0-50%. There is mild atherosclerotic plaque. LEFT CAROTID: The peak systolic velocity measurements in the left ICA is 59 cm/sec. The end diastol ic velocity measured 14 cm/sec. The ICA to CCA ratio measured 1.1 which correlates with a stenosis of 0-50%. There is mild atherosclerotic plaque. There is normal antegrade vertebral flow bilaterally. IMPRESSION: 1. No hemodynamically significant stenosis or significant atherosclerotic plaquing. 2. Normal antegrade vertebral flow bilaterally. ACT 112: Negative or not required by law. The above report was generated using voice recognition software. It may contain grammatical, syntax o r spelling errors. Electronically signed by: Denis Esparza M.D. 12/16/2023 9:10 AM
[2023-12-16] MEDS: CLOPIDOGREL BISULFATE 75 MG TAB PO ONE (14:04)
--- NOTE | 2023-12-16 14:35 | Discharge Summary ---
Date of Service December 16, 2023 Admission HPI Per Admitting Provider 88 yo female with h/o CVA, HTN she is on Plavix every other day, asthma, neuropathy presents after a fall this morning, denies any headache, LOC, reports vomiting this am. Patient woke up this morning and felt weak, dizzy, fell when was trying to walk , daughter reports that patient was drugging her right leg. She denies legs weakness , reports neuropathy in both feet, no new numbness. Took BP meds last night. Denies visual changes, no difficulties swallowing. She was able to ambulate. No focal deficit on exam CT head no acute findings, no fx on XR. Principal Diagnosis TIA Discharge Exam head atraumatic neck supple chest CTA b/l heart S1S2 regular abdomen soft, nt, nd , BS present legs no edema neuro AAO times 3, no focal deficit Discharge Data Allergies Allergy/AdvReac Type Severity Reaction Status Date / Time house dust Allergy Intermediate SINUS Verified 12/09/23 10:09 PROBLEM walnut Allergy Unknown + WITH Verified 12/09/23 10:09 ALLERGY TEST lactose AdvReac Intermediate GI SYMPTOMS Verified 12/09/23 10:09 aspirin AdvReac Mild stomach Verified 12/09/23 10:09 upset Consultations 12/15/23 17:22 ED Decision to Admit Stat Ordered Studies 12/15/23 14:50 CT head/brain wo con Stat 12/15/23 15:25 CT cervical spine wo con Stat 12/15/23 18:18 MR brain wo con Stat 12/16/23 US carotid doppler BI Stat Hospital Course (1) History of CVA (cerebrovascular accident) without residual deficits: presents with after fall, reports vertigo symptoms, TIA /CVA not ruled out BP is elevated neuro checks continue Plavix 75 mg daily MRI brain no acute findings carotid doppler no significant stenosis PT eval patient ambulated without difficulties (2) Fall: no fx, denies LOC (3) TIA (transient ischemic attack): earlier right leg weakness, no focal deficit on exam, she was able to ambulate in the room continue Plavix statins (4) Hypothyroidism: continue Synthroid (5) Hypertension: on Verapamil 180 mg daily , BP is stable (6) Depression: continue home meds (7) Asthma: no exacerbation continue home meds (8) Hyperlipidemia: continue Statins (9) Acute kidney injury: resolved with IV fluids Plan discharge home Total Time Total Time Spent Total Time Spent (In Minutes): 45 Discharge Plan Discharge Items Patient Disposition: Home - Self-Care Reason For Visit: LEG WEAKNESS Discharge Diagnosis: TIA Activity: Resume your previous activity Non-emergency contact: Primary Care Provider Call non-emergency contact if: your symptoms worsen Follow-up/Referrals: Rupal Kohli MD [Primary Care Provider] - 12/24/23 3:00 pm Diet: Heart Healthy Addtl Attending Provider Instructions: drink more water Pending Studies at Discharge: No Stand-Alone Forms: [employer], Smoking Cessation Medications and DC Order Prescriptions: Continued mecobalamin (vitamin B12) 10,000 mcg recon soln 10,000 mcg IM MONTHLY sumatriptan succinate 25 mg tablet 25 mg PO DAILY PRN (Reason: migraine headache) Qty: 27 3RF mirtazapine 7.5 mg tablet 7.5 mg PO HS Qty: 90 3RF pantoprazole 40 mg tablet,delayed release (DR/EC) 40 mg PO BID Qty: 180 1RF cyclosporine [Restasis] 0.05 % Dropperette 1 drp OPB Q12H Systane (PF) 0.4-0.3 % Dropperette 1 drp OPHTHALMIC (EYE) BID levothyroxine 75 mcg tablet 75 mcg PO QAM verapamil 180 mg capsule,ext rel. pellets 24 hr 180 mg PO HS escitalopram oxalate 20 mg tablet 20 mg PO QAM Rx Instructions: TAKE 1 TABLET DAILY hydroxyzine HCl 25 mg tablet 25 mg PO TID PRN (Reason: Anxiety) Patient Comments: takes only as needed per pt 12/09/23 Rx Instructions: for anxiety Changed clopidogrel [Plavix] 75 mg tablet 75 mg PO DAILY Qty: 0 0RF Discharge Orders: Discharge Order (Routine); Ordered 12/16/23 Ordered By: Lizet Peña Admission Data Admit Date/Time: 12/15/23 17:40 Attending Provider: Lizet Peña Admit Provider: Lizet Peña Primary Care Provider: Rupal Kohli Other Providers: Andrea Salinas Other Interventions: Discharge Summary Assessment (RN) Last Done: 12/16/23 14:29 Coding Level of Care Code 82395 INP/OBS DISCH >30 MIN Diagnoses History of CVA (cerebrovascular accident) without residual deficits Z86.73 Fall W19.XXXA Encounter type: initial encounter TIA (transient ischemic attack) G45.9 Hypothyroidism E03.9 Hypertension I10 Depression F32.9 Asthma J45.909 Hyperlipidemia E78.5 Acute kidney injury N17.9
== END 2023-12-16 14:40 | disposition home or self-care (01) | DRG 69 ==
LOC: ED 14:44 → ASUINP 14:44 → 2N 17:40 → INTOOBSV 18:52 → 2N 20:35 → UNDODISOB 12-16 14:40